=== PATIENT | male | born 1975 | race Two or more races ===

== ENCOUNTER 2018-02-23 22:43 | Emergency (ER) | payer SELFPAY ==
[2018-02-23] MEDS ORDERED: ACETAMINOPHEN 325 MG TABLET PO ONE (23:09)
[2018-02-23] MEDS ORDERED: HYDROMORPHONE HCL INJ/PF 2 MG/ML AMPULE IV ONE (23:13)
[2018-02-23] MEDS ORDERED: METOCLOPRAMIDE HCL INJ/PF 10 MG/2 ML SDV IV ONE (23:13)
--- NOTE | 2018-02-23 23:23 | ER Document Report ---
ED General - General Chief Complaint: Flank Pain Stated Complaint: NAUSEA AND FLANK PAIN Time Seen by Provider: 02/23/18 23:08 Mode of Arrival: Ambulatory Information source: Patient, Relative Notes: 42-year-old male with hypertension, COPD presents with complaint of left flank pain that started 5 days prior to arrival but worsened today just prior to arrival. Patient states the pain was initially intermittent, stabbing and not associated with nausea or vomiting. He states that he has had some upper respiratory congestion and thought the pain was caused by coughing. [facility]. Patient was home eating dinner when the pain became intense, constant and has been associated with continuous vomiting. Patient was unaware that he had a fever of 104. He denies any recent hospitalizations. TRAVEL OUTSIDE OF THE [place] IN LAST 30 DAYS: No - HPI Onset: Other Onset/Duration: Gradual, Persistent, Worse Quality of pain: Stabbing Severity: Severe Pain Level: 4 Associated symptoms: Nausea, Vomiting Exacerbated by: Movement Relieved by: Remaining still Similar symptoms previously: No Recently seen / treated by doctor: Yes - Related Data Allergies/Adverse Reactions: No Known Allergies Allergy (Unverified 02/23/18 22:51) Past Medical History - General Information source: Patient - Social History Smoking Status: Current Every Day Smoker Frequency of alcohol use: None Drug Abuse: None Lives with: Family Family History: Reviewed & Not Pertinent Patient has suicidal ideation: No Patient has homicidal ideation: No - Past Medical History Cardiac Medical History: Reports: Hx Hypertension Denies: Hx Coronary Artery Disease, Hx Heart Attack Pulmonary Medical History: Denies: Hx Asthma, Hx Bronchitis, Hx COPD, Hx Pneumonia Neurological Medical History: Denies: Hx Cerebrovascular Accident Musculoskeletal Medical History: Denies Hx Arthritis - Immunizations Hx Diphtheria, Pertussis, Tetanus Vaccination: Yes Review of Systems - Review of Systems EENT: No symptoms reported Cardiovascular: denies: Chest pain, Palpitations, Dizziness Respiratory: denies: Cough, Short of breath Gastrointestinal: Nausea, Vomiting Genitourinary: Flank pain, Retention. denies: Dysuria, Hematuria Male Genitourinary: No symptoms reported Musculoskeletal: No symptoms reported Skin: denies: Rash Hematologic/Lymphatic: denies: Easy bruising Neurological/Psychological: denies: Loss of power, Seizure, Headaches -: Yes All other systems reviewed and negative Physical Exam - Vital signs Vitals: Temp Pulse Resp BP Pulse Ox 104.5 F H 65 20 187/107 H 96 02/23/18 22:57 02/23/18 22:57 02/23/18 22:57 02/23/18 22:57 02/23/18 22:57 - Notes Notes: PHYSICAL EXAMINATION: GENERAL: Actively vomiting, ill-appearing, moderate distress. HEAD: Atraumatic, normocephalic. EYES: Pupils equal round and reactive to light, extraocular movements intact, sclera anicteric, conjunctiva are normal. ENT: Nares patent, oropharynx clear without exudates. Moist mucous membranes. NECK: Normal range of motion, supple without lymphadenopathy LUNGS: Breath sounds clear to auscultation bilaterally and equal. No wheezes rales or rhonchi. HEART: Regular rate and rhythm without murmurs ABDOMEN: Soft, nontender, nondistended abdomen. No guarding, no rebound. No masses appreciated. Musculoskeletal: Normal range of motion, no pitting or edema. No cyanosis. Left CVA tenderness NEUROLOGICAL: Cranial nerves grossly intact. Normal speech, normal gait. Normal sensory, motor exams PSYCH: Normal mood, normal affect. SKIN: Warm, Dry, normal turgor, no rashes or lesions noted. Course - Re-evaluation Re-evalutation: Laboratory 02/23/18 02/23/18 02/23/18 23:21 23:21 23:21 WBC 10.8 H RBC 5.29 Hgb 16.2 Hct 48.3 MCV 91 MCH 30.5 MCHC 33.5 RDW 13.5 Plt Count 240 Seg Neutrophils % 85.9 H Lymphocytes % 7.4 L Monocytes % 5.8 Eosinophils % 0.5 Basophils % 0.4 Absolute Neutrophils 9.2 H Absolute Lymphocytes 0.8 Absolute Monocytes 0.6 Absolute Eosinophils 0.1 Absolute Basophils 0.0 Sodium Potassium Chloride Carbon Dioxide Anion Gap BUN Creatinine Est GFR ( Amer) Est GFR (Non-Af Amer) Glucose Calcium Creatine Kinase 195 H CK-MB (CK-2) 1.79 Troponin I < 0.012 NT-Pro-B Natriuret Pep 91 Lipase 40.1 Urine Color Urine Appearance Urine pH Ur Specific [place] Urine Protein Urine Glucose (UA) Urine Ketones Urine Blood Urine Nitrite Urine Bilirubin Urine Urobilinogen Ur Leukocyte Esterase Urine WBC (Auto) Urine RBC (Auto) Urine Mucus (Auto) Urine Ascorbic Acid 07/11/18 07/12/18 23:21 01:28 WBC RBC Hgb Hct MCV MCH MCHC RDW Plt Count Seg Neutrophils % Lymphocytes % Monocytes % Eosinophils % Basophils % Absolute Neutrophils Absolute Lymphocytes Absolute Monocytes Absolute Eosinophils Absolute Basophils Sodium 146.7 H Potassium 4.1 Chloride 105 Carbon Dioxide 27 Anion Gap 15 BUN 22 H Creatinine 1.53 H Est GFR ( Amer) > 60 Est GFR (Non-Af Amer) 50 L Glucose 159 H Calcium 9.4 Creatine Kinase CK-MB (CK-2) Troponin I NT-Pro-B Natriuret Pep Lipase Urine Color YELLOW Urine Appearance CLEAR Urine pH 6.0 Ur Specific [place] 1.016 Urine Protein NEGATIVE Urine Glucose (UA) 50 H Urine Ketones 20 H Urine Blood SMALL H Urine Nitrite NEGATIVE Urine Bilirubin NEGATIVE Urine Urobilinogen NEGATIVE Ur Leukocyte Esterase NEGATIVE Urine WBC (Auto) 1 Urine RBC (Auto) 2 Urine Mucus (Auto) RARE Urine Ascorbic Acid NEGATIVE Abdomen/Pelvis CT 02/23/18 23:19 IMPRESSION: 1. There is a 0.3 cm obstructing calculus in the proximal left ureter producing mild left hydronephrosis. 2. Nonobstructing left nephrolithiasis. This exam was performed according to our departmental dose-optimization program, which includes automated exposure control, adjustment of the mA and/or kV according to patient size and/or use of iterative reconstruction technique. 42-year-old male with hypertension, COPD presents with complaint of left flank pain that started 5 days prior to arrival but worsened today just prior to arrival. Patient states the pain was initially intermittent, stabbing and not associated with nausea or vomiting. He states that he has had some upper respiratory congestion and thought the pain was caused by coughing. [facility] and [facility]. Patient was home eating dinner when the pain became intense, constant and has been associated with continuous vomiting. Patient was unaware that he had a fever of 104. He denies any recent hospitalizations. Upon arrival patient is in moderate distress , diaphoretic, actively vomiting and unable to find a position of comfort. Vitals signs reviewed upon arrival, patient is febrile tachycardic. Patient did recently IV fluids, Toradol, Dilaudid, Zofran, Reglan during his ED course. CBC shows mild leukocytosis, no anemia. CMP does show mild renal insufficiency which is likely due to the patient vomiting all day. On reevaluation patient is resting more comfortably, vomiting has stopped. CT and laboratory findings were discussed with the patient. He does have follow-up at the NH and next 2 days. Patient was administered Zofran and [place] through the department for home-going medications. Son is at the bedside will accompany the patient home. 02/23/18 23:33 Bedside ultrasound was performed to assess for AAA. Aorta at its maximal diameter is 3.09. Bedside ultrasound of the kidneys were performed to assess for hydronephrosis which was absent. Images attached to chart. 02/24/18 02:15 02/24/18 02:27 Repeat temp is within normal limits. Patient does report that just prior to arriving to the emergency room he was soaking in hot tub which is likely the reason for his elevated temp upon arrival. There is an improvement of his elevated blood pressure which I think is highly likely related to his pain and his inabilty to take his BP meds today. Patient provided the opportunity to ask questions, and express concerns. Discharge instructions discussed. Patient is agreeable with discharge home. Return indications explained and discussed with the patient who displays understanding. Patient encouraged to return to the emergency department immediately with any concerns. 02/25/18 07:18 02/25/18 07:19 - Vital Signs Vital signs: Temp Pulse Resp BP Pulse Ox 98.5 F 65 14 165/103 H 94 02/24/18 02:24 02/23/18 22:57 02/24/18 02:01 02/24/18 02:01 02/24/18 02:01 - Laboratory Result Diagrams: 02/23/18 23:21 02/23/18 23:21 Laboratory results interpreted by me: 02/23/18 02/23/18 02/23/18 23:21 23:21 23:21 WBC 10.8 H Seg Neutrophils % 85.9 H Lymphocytes % 7.4 L Absolute Neutrophils 9.2 H Sodium 146.7 H BUN 22 H Creatinine 1.53 H Est GFR (Non-Af Amer) 50 L Glucose 159 H Creatine Kinase 195 H Urine Glucose (UA) Urine Ketones Urine Blood 02/24/18 01:28 WBC Seg Neutrophils % Lymphocytes % Absolute Neutrophils Sodium BUN Creatinine Est GFR (Non-Af Amer) Glucose Creatine Kinase Urine Glucose (UA) 50 H Urine Ketones 20 H Urine Blood SMALL H - Diagnostic Test Radiology reviewed: Image reviewed, Reports reviewed - EKG Interpretation by Me EKG shows normal: Sinus rhythm Rate: Normal Rhythm: NSR Discharge - Discharge Clinical Impression: FREDERIC (acute kidney injury), Hyperglycemia Urolithiasis Qualifiers: Urinary calculus location: upper urinary tract Qualified Code(s): N20.9 - Urinary calculus, unspecified Hematuria Qualifiers: Hematuria type: unspecified type Qualified Code(s): R31.9 - Hematuria, unspecified Hypertension Qualifiers: Hypertension type: unspecified Qualified Code(s): I10 - Essential (primary) hypertension Nausea & vomiting Qualifiers: Vomiting type: unspecified Vomiting Intractability: non-intractable Qualified Code(s): R11.2 - Nausea with vomiting, unspecified Condition: Good Disposition: HOME, SELF-CARE Instructions: Fever ([facility]), High Blood Pressure ([facility]), Hyperglycemia ([facility]), Kidney Injury ([facility]), Kidney Stone ([facility]), Vomiting ([facility]) Additional Instructions: Please contact the NH tomorrow for urology follow-up. Please return to the emergency department if you are unable to keep down your meds. Prescriptions: Ibuprofen [Motrin 600 Mg Tablet] 600 mg PO TID #15 tablet Ondansetron [Zofran Odt 4 mg Tablet] 1 - 2 tab PO Q4H PRN #15 tab.rapdis PRN Reason: For Nausea/Vomiting Oxycodone HCl/Acetaminophen [Percocet 5-325 mg Tablet] 1 - 2 tab PO Q4H PRN #15 tablet PRN Reason: Tamsulosin HCl [Flomax 0.4 mg Cap.sr] 0.4 mg PO DAILY #7 cap.sr.24h Forms: Elevated Blood Pressure Referrals: [facility],NO [Primary Care Provider] - Follow up as needed
[2018-02-24] MEDS ORDERED: ONDANSETRON 4 MG TAB.RAPDIS PO ONE (00:08)
[2018-02-24] MEDS ORDERED: HYDROMORPHONE HCL INJ/PF 2 MG/ML AMPULE IV ONE ×2 (00:08→02:14)
[2018-02-24 00:09] LABS: ABSOLUTE EOSINOPHILS # (AUTO) 0.1 10^3/uL (0.0-0.6); ABSOLUTE LYMPHOCYTES (AUTO) 0.8 10^3/uL (0.5-4.7); ABSOLUTE MONOCYTES (AUTO) 0.6 10^3/uL (0.1-1.4); ABSOLUTE NEUT (AUTO) 9.2 10^3/uL (1.7-8.2); BASOPHILS % (AUTO) 0.4 % (0-2); EOSINOPHILS % (AUTO) 0.5 % (0-6); HEMATOCRIT 48.3 % (37.9-51.0); HEMOGLOBIN 16.2 g/dL (13.5-17.0); LYMPHOCYTES % (AUTO) 7.4 % (13-45); MEAN CORPUSCULAR HEMOGLOBIN 30.5 pg (27.0-33.4); MEAN CORPUSCULAR HGB CONC 33.5 g/dL (32.0-36.0); MEAN CORPUSCULAR VOLUME 91 fl (80-97); MONOCYTES % (AUTO) 5.8 % (3-13); PLATELET COUNT 240 10^3/uL (150-450); RED BLOOD COUNT 5.29 10^6/uL (4.35-5.55); RED CELL DISTRIBUTION WIDTH 13.5 % (11.5-14.0); SEGMENTED NEUTROPHILS % (AUTO) 85.9 % (42-78); TOTAL CELLS COUNTED % (AUTO) 100 %; WHITE BLOOD COUNT 10.8 10^3/uL (4.0-10.5)
[2018-02-24] MEDS ORDERED: NORMAL SALINE 1000 ML 1,000 ML IV ONE (00:09)
[2018-02-24 00:27] LABS: LIPASE 40.1 U/L (23-300)
[2018-02-24 00:43] LABS: CREATINE KINASE MB 1.79 ng/mL (<4.55); NT PRO BNP 91 pg/mL (<125); TROPONIN I < 0.012 ng/mL
--- NOTE | 2018-02-24 00:55 | RADIOLOGY REPORT (SQ) ---
EXAM DESCRIPTION: CT ABDOMEN PELVIS WITHOUT IV CONTRAST COMPLETED DATE/TME: 02/23/2018 23:19 CLINICAL HISTORY: left flank pain COMPARISON: None Available. TECHNIQUE: CT of the abdomen and pelvis without IV contrast. Evaluation of the solid organs and vasculature is suboptimal due to lack of IV contrast. DLP: 1109.31 mGy-cm FINDINGS: Lung Bases: Bilateral calcified granulomas. Otherwise lung bases are clear. Bones: No destructive bone lesions identified. Abdomen: Liver: The liver has normal size and density. Scattered subcentimeter hypodensities in the right hepatic lobe are incompletely characterized on this study and may represent hemangiomas or small cysts. Gallbladder: No calcified gallstones. Spleen, Pancreas, and Adrenal Glands: The spleen, pancreas, and adrenal glands are unremarkable. Kidneys: No right-sided hydronephrosis. Punctate nonobstructing left renal calculi. Mild left perinephric fat stranding. There is a 0.3 cm obstructing calculus in the proximal left ureter producing mild left hydronephrosis. Vasculature: The aorta and IVC have normal caliber and position. Stomach: The stomach and duodenum have normal course. Other: No free intraperitoneal air. No free fluid or lymphadenopathy. Pelvis: Bladder: Urinary bladder is unremarkable. Bowel: No dilated loops of large or small bowel. Appendix: Normal appendix. Pelvis: Prostate is not enlarged. IMPRESSION: 1. There is a 0.3 cm obstructing calculus in the proximal left ureter producing mild left hydronephrosis. 2. Nonobstructing left nephrolithiasis. This exam was performed according to our departmental dose-optimization program, which includes automated exposure control, adjustment of the mA and/or kV according to patient size and/or use of iterative reconstruction technique.
[2018-02-24] MEDS ORDERED: TAMSULOSIN HCL 0.4 MG CAP.SR.24H PO ONE (01:13)
[2018-02-24] MEDS ORDERED: KETOROLAC TROMETHAMINE INJ/PF 30 MG/1 ML SDV IV ONE (01:13)
[2018-02-24 01:35] LABS: ANION GAP 15 (5-19); BLOOD UREA NITROGEN 22 mg/dL (7-20); CALCIUM 9.4 mg/dL (8.4-10.2); CARBON DIOXIDE 27 mmol/L (22-30); CHLORIDE 105 mmol/L (98-107); GLUCOSE 159 mg/dL (75-110); POTASSIUM 4.1 mmol/L (3.6-5.0); SODIUM 146.7 mmol/L (137-145)
[2018-02-24 01:39] LABS: APPEARANCE,URINE CLEAR; BILIRUBIN,URINE NEGATIVE (NEGATIVE); COLOR,URINE YELLOW; GLUCOSE, URINE 50 mg/dL (NEGATIVE); KETONES,URINE 20 mg/dL (NEGATIVE); LEUKOCYTE ESTERASE,URINE NEGATIVE (NEGATIVE); NITRITE,URINE NEGATIVE (NEGATIVE); PROTEIN,URINE NEGATIVE (NEGATIVE); URINE SPECIFIC GRAVITY 1.016; UROBILINOGEN,URINE NEGATIVE mg/dL (<2.0)
[2018-02-24 02:25] VITALS: BP 165/103
[2018-02-24] MEDS ORDERED: ONDANSETRON ODT 4 MG TAB (6 TAB/ER DISP) PO PRN (02:28)
[2018-02-24] MEDS ORDERED: HYDROCODONE/ACETAMINOPHEN 5-325 MG (6 TAB/ER DISP) PO PRN (02:28)
--- NOTE | 2018-02-24 20:31 | EKG REPORT ---
SEVERITY:- ABNORMAL ECG - SINUS RHYTHM PROBABLE INFERIOR INFARCT, AGE INDETERMINATE : Confirmed by: Susan Peter MD 24-Feb-2018 20:30:26
== END 2018-02-24 02:35 | disposition home or self-care (01) ==
LOC: ER 22:43
DX: N17.9 Acute kidney failure, unspecified (principal); N20.9 Urinary calculus, unspecified; R31.9 Hematuria, unspecified; R73.9 Hyperglycemia, unspecified; R10.9 Unspecified abdominal pain; R11.2 Nausea with vomiting, unspecified; F17.200 Nicotine dependence, unspecified, uncomplicated; J44.9 Chronic obstructive pulmonary disease, unspecified; I10 Essential (primary) hypertension
CPT/HCPCS: 93005; 96376; 99284; 96361; 96374; 96375; 36415; 87040; 82553; 82550; 83690; 85025; 80048; 81001; 84484; 83880; 74176; 93010; S0119; J1885; J2765; J1170 ×2; J7030

== ENCOUNTER 2018-10-07 17:09 | Inpatient (IN) | payer OTHER ==
[2018-10-07 17:37] LABS: ABSOLUTE BASOPHILS # (AUTO) 0.1 10^3/uL (0.0-0.2); ABSOLUTE EOSINOPHILS # (AUTO) 0.1 10^3/uL (0.0-0.6); ABSOLUTE LYMPHOCYTES (AUTO) 2.6 10^3/uL (0.5-4.7); ABSOLUTE MONOCYTES (AUTO) 0.8 10^3/uL (0.1-1.4); ABSOLUTE NEUT (AUTO) 4.5 10^3/uL (1.7-8.2); BASOPHILS % (AUTO) 0.8 % (0-2); HEMATOCRIT 48.3 % (37.9-51.0); HEMOGLOBIN 16.2 g/dL (13.5-17.0); LYMPHOCYTES % (AUTO) 32.4 % (13-45); MEAN CORPUSCULAR HEMOGLOBIN 31.3 pg (27.0-33.4); MEAN CORPUSCULAR HGB CONC 33.6 g/dL (32.0-36.0); MEAN CORPUSCULAR VOLUME 93 fl (80-97); MONOCYTES % (AUTO) 10.2 % (3-13); PLATELET COUNT 377 10^3/uL (150-450); RED BLOOD COUNT 5.19 10^6/uL (4.35-5.55); RED CELL DISTRIBUTION WIDTH 12.8 % (11.5-14.0); SEGMENTED NEUTROPHILS % (AUTO) 55.6 % (42-78); TOTAL CELLS COUNTED % (AUTO) 100 %; WHITE BLOOD COUNT 8.1 10^3/uL (4.0-10.5)
[2018-10-07 18:03] LABS: ALANINE AMINOTRANSFERASE 36 U/L (21-72); ALBUMIN 5.3 g/dL (3.5-5.0); ALKALINE PHOSPHATASE 62 U/L (38-126); ANION GAP 17 (5-19); ASPARTATE AMINO TRANSFERASE 47 U/L (17-59); BILIRUBIN,DIRECT 0.4 mg/dL (0.0-0.4); BILIRUBIN,TOTAL 0.8 mg/dL (0.2-1.3); BLOOD UREA NITROGEN 15 mg/dL (7-20); CALCIUM 9.9 mg/dL (8.4-10.2); CARBON DIOXIDE 24 mmol/L (22-30); CHLORIDE 103 mmol/L (98-107); CREATINE KINASE 575 U/L (55-170); GLUCOSE 108 mg/dL (75-110); POTASSIUM 3.8 mmol/L (3.6-5.0); SODIUM 143.7 mmol/L (137-145); TOTAL PROTEIN 7.8 g/dL (6.3-8.2)
[2018-10-07] MEDS ORDERED: LORAZEPAM INJ 2 MG/1 ML VIAL IV ONE (18:12)
[2018-10-07] MEDS ORDERED: CLONIDINE HCL 0.1 MG TABLET PO ONE (18:12)
--- NOTE | 2018-10-07 18:12 | RADIOLOGY REPORT (SQ) ---
EXAM DESCRIPTION: CHEST SINGLE VIEW COMPLETED DATE/TIME: 10/07/2018 5:53 pm REASON FOR STUDY: cp COMPARISON: None. EXAM PARAMETERS: NUMBER OF VIEWS: One view. TECHNIQUE: Single frontal radiographic view of the chest acquired. RADIATION DOSE: NA LIMITATIONS: None. FINDINGS: LUNGS AND PLEURA: There are some calcified granulomas. No infiltrate or effusion. No wor risome mass. MEDIASTINUM AND HILAR STRUCTURES: No masses. Contour normal. HEART AND VASCULAR STRUCTURES: Heart normal in size. Normal vasculature. BONES: No acute findings. HARDWARE: None in the chest. OTHER: No other significant finding. IMPRESSION: Prior granulomatous disease. No acute cardiopulmonary findings. TECHNICAL DOCUMENTATION: JOB ID: [id number] [employer]- All Rights Reserved Reading location - IP/workstation name: [email or web address]
[2018-10-07] MEDS ORDERED: NORMAL SALINE 1000 ML 1,000 ML IV ONE (18:13)
[2018-10-07 18:15] LABS: CREATINE KINASE MB 4.72 ng/mL (<4.55)
[2018-10-07 18:16] LABS: TROPONIN I < 0.012 ng/mL
--- NOTE | 2018-10-07 18:21 | ER Document Report ---
ED General - General Chief Complaint: Syncope Stated Complaint: CHEST PAIN Time Seen by Provider: 10/07/18 18:00 Primary Care Provider: [facility] [Primary Care Provider] - Follow up as needed Mode of Arrival: Medic Information source: Patient Notes: 43-year-old male presents emergency department with complaints of an anxiety attack. Patient states that he has been having increasing anxiety for the last month. He states that he is followed up with the [facility] on Wednesday and again today. Patient states that when he was at the [facility] today they gave him a prescription for Prozac. As he was getting ready to leave, his chest pain occurred and he was feeling lightheaded, flushed, nauseated and he passed out. He was unresponsive for 5-10 seconds per the . EMS was called and patient was brought to the emergency department. Patient denies any new chest pain. He states that he has been having a tight sensation in the center of his chest intermittently for the last month. His current chest pain is located in the center of the chest. Pressure sensation. Radiation to the L shoulder. He denies any alleviating or exacerbating factors. Patient states that he stopped all of his medications a month and a half ago. He states that he supposed to be on blood pressure medication as he has a history of hypertension. Patient was hypertensive prior to arrival. Patient states that he supposed to be taking hydrochlorothiazide. Patient denies a history of coronary artery disease, diabetes, hyperlipidemia, family history of coronary artery disease. TRAVEL OUTSIDE OF THE [place] IN LAST 30 DAYS: No - HPI Onset: Other - 1 month Quality of pain: Pressure Severity: Mild Associated symptoms: Chest pain Exacerbated by: Denies Relieved by: Denies Similar symptoms previously: Yes Recently seen / treated by doctor: Yes - Related Data Allergies/Adverse Reactions: No Known Allergies Allergy (Unverified 02/23/18 22:51) Past Medical History - General Information source: Patient - Social History Smoking Status: Never Smoker Family History: Reviewed & Not Pertinent Patient has suicidal ideation: No Patient has homicidal ideation: No - Past Medical History Cardiac Medical History: Reports: Hx Hypertension Denies: Hx Coronary Artery Disease, Hx Heart Attack Pulmonary Medical History: Denies: Hx Asthma, Hx Bronchitis, Hx COPD, Hx Pneumonia Neurological Medical History: Denies: Hx Cerebrovascular Accident Renal/ Medical History: Denies: Hx Peritoneal Dialysis Musculoskeletal Medical History: Denies Hx Arthritis - Immunizations Hx Diphtheria, Pertussis, Tetanus Vaccination: Yes Review of Systems - Review of Systems Constitutional: No symptoms reported EENT: No symptoms reported Cardiovascular: Chest pain Respiratory: No symptoms reported Gastrointestinal: No symptoms reported Genitourinary: No symptoms reported Musculoskeletal: No symptoms reported Skin: No symptoms reported Hematologic/Lymphatic: No symptoms reported Neurological/Psychological: No symptoms reported -: Yes All other systems reviewed and negative Physical Exam - Vital signs Vitals: Pulse Ox 99 10/07/18 17:18 - Notes Notes: PHYSICAL EXAMINATION: GENERAL: Well-appearing, well-nourished and in no acute distress. HEAD: Atraumatic, normocephalic. EYES: Pupils equal round and reactive to light, extraocular movements intact, sclera anicteric, conjunctiva are normal. ENT: Nares patent, oropharynx clear without exudates. Moist mucous membranes. NECK: Normal range of motion, supple without lymphadenopathy LUNGS: Breath sounds clear to auscultation bilaterally and equal. No wheezes rales or rhonchi. HEART: Regular rate and rhythm without murmurs ABDOMEN: Soft, nontender, nondistended abdomen. No guarding, no rebound. No masses appreciated. Musculoskeletal: Normal range of motion, no pitting or edema. No cyanosis. NEUROLOGICAL: Cranial nerves grossly intact. Normal speech, normal gait. Normal sensory, motor exams PSYCH: Normal mood, normal affect. SKIN: Warm, Dry, normal turgor, no rashes or lesions noted. Course - Re-evaluation Re-evalutation: 10/07/18 18:21 EKG: Ventricular rate 89, MN interval 184, QRS duration 104, QTc 473, sinus rhythm. No ischemic changes. 10/07/18 20:11 Labs and imaging obtained. CK and CKMB are slightly elevated. Patient given ativan for his anxiety and clonidine for his hypertension. On re-evaluation, patient's pain/anxiety has resolved. With the patient's history of Chest pressure and elevated CKMB, I contacted the hospitalist for cardiac rule out. Dr. Sharp accepts patient. - Vital Signs Vital signs: Temp Pulse Resp BP Pulse Ox 97.9 F 62 15 183/100 H 97 10/07/18 17:25 10/07/18 19:15 10/07/18 20:01 10/07/18 20:00 10/07/18 20:01 - Laboratory Result Diagrams: 10/07/18 17:18 10/07/18 17:18 Laboratory results interpreted by me: 10/07/18 10/07/18 17:18 17:18 Creatine Kinase 575 H CK-MB (CK-2) 4.72 H Albumin 5.3 H Discharge - Discharge Clinical Impression: Chest pain Qualifiers: Chest pain type: unspecified Qualified Code(s): R07.9 - Chest pain, unspecified Syncope Qualifiers: Syncope type: unspecified Qualified Code(s): R55 - Syncope and collapse Condition: Stable Disposition: ADMITTED OBSERVATION Admitting Provider: Hospitalist Unit Admitted: Telemetry [facility]errals: [facility] [Primary [facility] Provider] - Follow up as needed
--- NOTE | 2018-10-07 19:27 | EKG REPORT ---
SEVERITY:- ABNORMAL ECG - SINUS OR ECTOPIC ATRIAL RHYTHM PROBABLE INFERIOR INFARCT, AGE INDETERMINATE : Confirmed by: Raymond Mcginnis MD 07-Oct-2018 19:26:53
[2018-10-07] MEDS ORDERED: MAG HYDROX/AL HYDROX/SIMETH SUSP 30 ML UDCUP PO PRN (21:34)
[2018-10-07] MEDS ORDERED: ONDANSETRON HCL INJ/PF 4 MG/2 ML SDV IV PRN (21:34)
[2018-10-07] MEDS ORDERED: ONDANSETRON 4 MG TAB.RAPDIS PO PRN (21:34)
[2018-10-07] MEDS ORDERED: MAGNESIUM HYDROXIDE SUSP 30 ML UDCUP PO PRN (21:34)
[2018-10-07] MEDS ORDERED: NALBUPHINE HCL INJ 10 MG/1 ML AMPULE IV PRN (21:38)
[2018-10-07] MEDS ORDERED: NITROGLYCERIN 0.4 MG/TAB 25 TAB/BOTTLE SL PRN (21:38)
[2018-10-07] MEDS ORDERED: CLONAZEPAM 1 MG TABLET PO PRN (21:42)
[2018-10-07] MEDS ORDERED: LOSARTAN POTASSIUM 50 MG TABLET PO ONE (21:46)
[2018-10-07] MEDS: HEPARIN SOD (PORCINE) 5,000 UNIT/ML 1 ML SYRINGE SUBCUT SCH (22:07)
[2018-10-07] MEDS: FAMOTIDINE 20 MG TABLET PO SCH (22:07)
[2018-10-07] MEDS: HYDRALAZINE HCL INJ/PF 20 MG/1 ML SDV IV PRN (23:30)
--- NOTE | 2018-10-08 00:37 | PDOC H&P ---
History of Present Illness Admission Date/PCP: [facility] Patient complains of: Chest pain History of Present Illness: FRANKIE SLATER II is a 43 year old male who presented to the emergency room via EMS from the [facility] with a complaint of chest pain. He admits that he has been having chest pain for the last 3 weeks which he describes as a nearly continuously present while awake, waxing and waning, moderate to severe tightness/pressure discomfort over his bilateral anterior chest wall with occasional radiation to the bilateral shoulders (experienced as a burning sensation) as well as when the pain is most severe it is radiated to t he upper back and base of the neck. He further admits that his chest pain is accompanied by numbness and tingling in his lips, a sensation of tunnel vision, lightheadedness and hyperventilation/acute episodic dyspnea. On the episode which occurred at the [facility] just prior to his coming to the emergency room he experienced a 10-second episode of syncope however he knew that he was about to pass out and informed the staff that that was how he was feeling just prior to his syncopal episode. He has no memory of the actual syncopal episode but clearly remembers everything from the point of waking from the episode and being informed that he was unconscious for about 10 seconds. He admits that he has had significant problems with anxiety for quite some time and has been seeking help at the [facility] with little or no success. Additionally he admits that he has known hypertension since his teenage years but he has discontinued the use of antihypertensive medications for more than 2 years. He denies prior similar episodes, but has identified stress as a definite aggravating factor for his chest pain and other symptoms and has also identified sitting calmly in meditating as a ameliorating factor for his chest pain and other symptoms. In the emergency room he was found to have a normal EKG and a negative troponin I. Because of his risk factors he was admitted to the hospital for further evaluation and treatment to include a cardiac stress test and initiation of appropriate therapy for his generalized anxiety disorder with panic attacks. Past Medical History Cardiac Medical History: Reports: Hypertension Denies: Coronary Artery Disease, DVT, Myocardial Infarction, Hyperlipidema, Pulmonary Embolism Pulmonary Medical History: Denies: Asthma, Bronchitis, Chronic Obstructive Pulmonary Disease (COPD), Pneumonia EENT Medical History: Reports: None Neurological Medical History: Reports: Other - Left-sided paresthesia episodes Denies: Migraine, Multiple Sclerosis, Seizures Endocrine Medical History: Reports: Obesity Denies: Diabetes Mellitus Type 1, Diabetes Mellitus Type 2, Hyperthyroidism, Hypothyroidism Renal/ Medical History: Denies: Chronic Kidney Disease, Nephrolithiasis Malignancy Medical History: Reports: None GI Medical History: Denies: Cirrhosis, Hepatitis Musculoskeltal Medical History: Denies: Arthritis, Fibromyalgia, Gout Skin Medical History: Denies: Eczema, Psoriasis Psychiatric Medical History: Reports: General Anxiety Disorder, 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 Denies: Alcohol Dependency, Substance Abuse, Tobacco Dependency Traumatic Medical History: Reports: None Hematology: Denies: Anemia Infectious Medical History: Reports: None Past Surgical History Past Surgical History: Reports: None Social History Information Source: Patient Smoking Status: Never Smoker Frequency of Alcohol Use: None Hx Recreational Drug Use: No Drugs: None Hx Prescription Drug Abuse: No - Advance Directive Resuscitation Status: Full Code Surrogate healthcare decision maker:: Spouse Family History Family History: CAD, DM, Hypertension, Malignancy Parental Family History Reviewed: Yes Children Family History Reviewed: No Sibling(s) Family History Reviewed.: Yes Medication/Allergy Home Medications: Bupropion HCl [Wellbutrin Sr 150 mg Tablet] 1 tab PO Q12 05/17/13 Carbamazepine [Tegretol XR 100 mg Ext Release Tablet] 100 mg PO BID 05/17/13 Diazepam [Valium 5 Mg Tablet] 5 mg PO Q6 PRN 05/17/13 Hydrochlorothiazide 1 PO DAILY 05/17/13 Metoprolol Succinate [Toprol XL 25 mg Tablet] 25 mg PO 05/17/13 Ibuprofen [Motrin 600 Mg Tablet] 600 mg PO TID #15 tablet 02/24/18 Ondansetron [Zofran Odt 4 mg Tablet] 1 - 2 tab PO Q4H PRN #15 tab.rapdis 08/02 Oxycodone HCl/Acetaminophen [Percocet 5-325 mg Tablet] 1 - 2 tab PO Q4H PRN #15 tablet 02/24/18 Tamsulosin HCl [Flomax 0.4 mg Cap.sr] 0.4 mg PO DAILY #7 cap.sr.24h 02/24/18 Allergies/Adverse Reactions: No Known Allergies Allergy (Unverified 02/23/18 22:51) Review of Systems Constitutional: ABSENT: chills, fever(s) Eyes: ABSENT: visual disturbances, other - Eye pain Ears: ABSENT: hearing changes, other - Ear pain Nose, Mouth, and Throat: ABSENT: mouth pain, sore throat Cardiovascular: PRESENT: as per HPI, chest pain. ABSENT: dyspnea on exertion, edema, orthropnea, palpitations Respiratory: PRESENT: as per HPI, dyspnea. ABSENT: cough Gastrointestinal: ABSENT: abdominal pain, constipation, diarrhea, nausea, vomiting Genitourinary: ABSENT: dysuria, hematuria Musculoskeletal: ABSENT: deformity, joint swelling Integumentary: ABSENT: pruritus, rash Neurological: PRESENT: as per HPI, paresthesias, syncope. ABSENT: confusion, convulsions, focal weakness, memory loss Psychiatric: PRESENT: anxiety, depression Endocrine: ABSENT: cold intolerance, heat intolerance Hematologic/Lymphatic: ABSENT: easy bleeding, easy bruising Physical Exam Vital Signs: Temp Pulse Resp BP Pulse Ox 97.9 F 62 19 146/90 H 94 10/07/18 17:25 10/07/18 19:15 10/07/18 19:31 10/07/18 19:31 10/07/18 19:31 Intake & Output 10/05/18 10/06/18 10/07/18 23:59 23:59 23:59 Intake Total 1000 Balance 1000 Weight 117.934 kg General appearance: PRESENT: no acute distress, cooperative, obese Head exam: PRESENT: atraumatic, normocephalic Eye exam: PRESENT: conjunctiva pink, EOMI. ABSENT: scleral icterus Ear exam: PRESENT: normal external ear exam. ABSENT: bleeding, drainage Mouth exam: PRESENT: dry mucosa, neck supple Neck exam: ABSENT: JVD, thyromegaly, tracheal deviation Respiratory exam: PRESENT: clear to auscultation max, symmetrical, unlabored Cardiovascular exam: PRESENT: RRR. ABSENT: clicks, gallop, rubs Pulses: PRESENT: normal radial pulses, normal dorsalis pedis pul Vascular exam: PRESENT: normal capillary refill. ABSENT: pallor GI/Abdominal exam: PRESENT: normal bowel sounds, soft Rectal exam: PRESENT: deferred Extremities exam: ABSENT: joint swelling, pedal edema, tenderness Musculoskeletal exam: PRESENT: full ROM, normal inspection. ABSENT: tenderness Neurological exam: PRESENT: alert, awake, oriented to person, oriented to place, oriented to time, oriented to situation, CN II-XII grossly intact. ABSENT: motor sensory deficit Psychiatric exam: PRESENT: appropriate affect, normal mood Skin exam: PRESENT: dry, intact, warm. ABSENT: jaundice, rash, urticaria Results Laboratory Results: 10/07/18 17:18 10/07/18 17:18 10/07/18 10/07/18 17:18 17:18 WBC 8.1 RBC 5.19 Hgb 16.2 Hct 48.3 MCV 93 MCH 31.3 MCHC 33.6 RDW 12.8 Plt Count 377 Seg Neutrophils % 55.6 Lymphocytes % 32.4 Monocytes % 10.2 Eosinophils % 1.0 Basophils % 0.8 Absolute Neutrophils 4.5 Absolute Lymphocytes 2.6 Absolute Monocytes 0.8 Absolute Eosinophils 0.1 Absolute Basophils 0.1 Sodium 143.7 Potassium 3.8 Chloride 103 Carbon Dioxide 24 Anion Gap 17 BUN 15 Creatinine 0.92 Est GFR ( Amer) > 60 Est GFR (Non-Af Amer) > 60 Glucose 108 Calcium 9.9 Total Bilirubin 0.8 AST 47 ALT 36 Alkaline Phosphatase 62 Total Protein 7.8 Albumin 5.3 H 10/07/18 10/07/18 17:18 17:18 Creatine Kinase 575 H CK-MB (CK-2) 4.72 H Troponin I < 0.012 Impressions: Chest X-Ray 10/07/18 17:22 IMPRESSION: Prior granulomatous disease. No acute cardiopulmonary findings. Assessment & Plan - Diagnosis (1) Chest pain Qualifiers: Chest pain type: unspecified Qualified Code(s): R07.9 - Chest pain, unspecified Is this a current diagnosis for this admission?: Yes Plan: A Cardiolite stress test is planned for the morning to evaluate the patient's chest pain. Serial cardiac enzymes and EKGs will also be obtained. Further evaluation treatment will be based upon the results of these tests. Patient's chest pain will also be treated with Nubain 10 mg IV every 3 hours as needed for chest pain. (2) Essential hypertension, malignant Is this a current diagnosis for this admission?: Yes Plan: Patient will be restarted on antihypertensive medication with losartan 100 mg p.o. daily with further treatment based upon his response to initial therapy. (3) Generalized anxiety disorder with panic attacks Is this a current diagnosis for this admission?: Yes Plan: Patient's generalized anxiety disorder with panic attacks will be initially managed with clonazepam 0.5 mg p.o. twice daily. The patient will be treated for any severe acute anxiety or agitation with Valium 10 mg IV every 2 hours as needed. (4) Syncope Qualifiers: Syncope type: psychogenic syncope Qualified Code(s): F48.8 - Other specified nonpsychotic mental disorders Is this a current diagnosis for this admission?: Yes Plan: Patient's syncope would seem to have been related to his hyperventilation however his cardiac stress test and emergency room evaluation already performed should reliably rule out the vast majority of other causes of his syncopal episode. - Time Time Spent: 50 to 70 Minutes Critical Time spent with patient: Less than 15 minutes Medications reviewed and adjusted accordingly: Yes - Has prescription for Prozac Anticipated discharge: Home - Inpatient Certification Based on my medical assessment, after consideration of the patient's comorbidities, presenting symptoms, or acuity I expect that the services needed warrant INPATIENT care.: Yes I certify that my determination is in accordance with my understanding of Medicare's requirements for reasonable and necessary INPATIENT services [42 CFR 412.3e].: Yes Medical Necessity: Failure to Improve With Outpatient Therapy, Need Close Monitoring Due to Risk of Patient Decompensation, Need For Continuous Telemetry Monitoring, Need for Pain Control, Risk of Complication if Not Cared For in Hospital
[2018-10-08] MEDS ORDERED: DIAZEPAM INJ 10 MG/2 ML DISP.SYRIN IV PRN ×2 (00:54→06:01)
[2018-10-08 04:08] LABS: HEMATOCRIT 44.4 % (37.9-51.0); HEMOGLOBIN 15.2 g/dL (13.5-17.0); MEAN CORPUSCULAR HEMOGLOBIN 31.2 pg (27.0-33.4); MEAN CORPUSCULAR HGB CONC 34.2 g/dL (32.0-36.0); MEAN CORPUSCULAR VOLUME 91 fl (80-97); PLATELET COUNT 246 10^3/uL (150-450); RED BLOOD COUNT 4.86 10^6/uL (4.35-5.55); WHITE BLOOD COUNT 4.7 10^3/uL (4.0-10.5)
[2018-10-08 04:22] LABS: ANION GAP 7 (5-19); BLOOD UREA NITROGEN 12 mg/dL (7-20); CALCIUM 9.4 mg/dL (8.4-10.2); CARBON DIOXIDE 27 mmol/L (22-30); CHLORIDE 109 mmol/L (98-107); CHOLESTEROL 149.81 mg/dL (0-200); GLUCOSE 98 mg/dL (75-110); POTASSIUM 3.5 mmol/L (3.6-5.0); SODIUM 143.4 mmol/L (137-145); TRIGLYCERIDES 127 mg/dL (<150)
[2018-10-08 04:33] LABS: DIRECT LDL 106 mg/dL (<100)
[2018-10-08 04:35] LABS: CREATINE KINASE MB 2.35 ng/mL (<4.55)
[2018-10-08 04:39] LABS: FREE T3 4.07 pg/mL (2.77-5.27); FREE T4 (FREE THYROXINE) 1.1 ng/dL (0.78-2.19); TROPONIN I < 0.012 ng/mL
[2018-10-08 04:52] LABS: THYROID STIMULATING HORMONE 0.91 uIU/mL (0.47-4.68)
[2018-10-08] MEDS: HEPARIN SOD (PORCINE) 5,000 UNIT/ML 1 ML SYRINGE SUBCUT SCH ×3 (05:36→21:39)
[2018-10-08] MEDS: CLONAZEPAM 1 MG TABLET PO PRN ×2 (06:08→14:03)
[2018-10-08] MEDS: HYDRALAZINE HCL INJ/PF 20 MG/1 ML SDV IV PRN ×2 (08:14→12:48)
[2018-10-08 11:01] LABS: CREATINE KINASE MB 1.98 ng/mL (<4.55); TROPONIN I < 0.012 ng/mL
[2018-10-08] MEDS: FAMOTIDINE 20 MG TABLET PO SCH ×2 (11:41→21:39)
[2018-10-08] MEDS: LOSARTAN POTASSIUM 50 MG TABLET PO SCH (11:41)
[2018-10-08] MEDS: ACETAMINOPHEN 325 MG TABLET PO PRN ×2 (11:41→19:59)
[2018-10-08] MEDS: DOCUSATE SODIUM 100 MG CAPSULE PO SCH ×2 (11:42→18:43)
--- NOTE | 2018-10-08 13:13 | EKG REPORT ---
SEVERITY:- ABNORMAL ECG - ECTOPIC ATRIAL RHYTHM LAD, BORDERLINE PROLONGED QT INTERVAL : Confirmed by: Raymond Mcginnis MD 08-Oct-2018 13:12:54
--- NOTE | 2018-10-08 13:33 | PDOC PROGRESS REPORT ---
Subjective Progress Note for:: 10/08/18 Subjective:: Admitted overnight for chest pain. Most likely due to worsening anxiety. Patient feels that symptoms feel like chest pressure which he can feel "in my muscles". Denies SOB, abdominal pain, NV. Does admit to lightheadness with movement. No loss of consciousness. Trying to relax and play instrument in bed. Stress test was cancelled this AM due to elevated BP. No other complaints at this point. Reason For Visit: CHEST PAIN Physical Exam Vital Signs: Temp Pulse Resp BP Pulse Ox 97.6 F 106 H 18 172/95 H 99 10/08/18 11:00 10/08/18 12:51 10/08/18 11:00 10/08/18 12:51 10/08/18 12:51 Intake & Output 10/07/18 10/08/18 10/09/18 06:59 06:59 06:59 Intake Total 1150 Output Total 775 Balance 375 Weight 116.7 kg General appearance: PRESENT: no acute distress, cooperative, well-developed, well-nourished Mouth exam: PRESENT: moist Respiratory exam: PRESENT: chest wall tenderness, unlabored. ABSENT: tachypnea, wheezes Cardiovascular exam: PRESENT: +S1, +S2, tachycardia GI/Abdominal exam: PRESENT: soft. ABSENT: tenderness Extremities exam: ABSENT: +1 edema Neurological exam: PRESENT: alert, awake, CN II-XII grossly intact Psychiatric exam: PRESENT: anxious, appropriate affect, normal mood Focused psych exam: ABSENT: pressured speech Skin exam: PRESENT: dry, intact Results Laboratory Results: 10/08/18 03:47 10/08/18 03:47 10/07/18 10/07/18 10/08/18 17:18 17:18 03:47 WBC 8.1 4.7 RBC 5.19 4.86 Hgb 16.2 15.2 Hct 48.3 44.4 MCV 93 91 MCH 31.3 31.2 MCHC 33.6 34.2 RDW 12.8 13.0 Plt Count 377 246 Seg Neutrophils % 55.6 Lymphocytes % 32.4 Monocytes % 10.2 Eosinophils % 1.0 Basophils % 0.8 Absolute Neutrophils 4.5 Absolute Lymphocytes 2.6 Absolute Monocytes 0.8 Absolute Eosinophils 0.1 Absolute Basophils 0.1 Sodium 143.7 Potassium 3.8 Chloride 103 Carbon Dioxide 24 Anion Gap 17 BUN 15 Creatinine 0.92 Est GFR ( Amer) > 60 Est GFR (Non-Af Amer) > 60 Glucose 108 Calcium 9.9 Magnesium Total Bilirubin 0.8 AST 47 ALT 36 Alkaline Phosphatase 62 Total Protein 7.8 Albumin 5.3 H Triglycerides Cholesterol LDL Cholesterol Direct VLDL Cholesterol HDL Cholesterol TSH Free T4 Free T3 pg/mL 10/08/18 10/08/18 03:47 03:47 WBC RBC Hgb Hct MCV MCH MCHC RDW Plt Count Seg Neutrophils % Lymphocytes % Monocytes % Eosinophils % Basophils % Absolute Neutrophils Absolute Lymphocytes Absolute Monocytes Absolute Eosinophils Absolute Basophils Sodium 143.4 Potassium 3.5 L Chloride 109 H Carbon Dioxide 27 Anion Gap 7 BUN 12 Creatinine 0.77 Est GFR ( Amer) > 60 Est GFR (Non-Af Amer) > 60 Glucose 98 Calcium 9.4 Magnesium 2.4 H Total Bilirubin AST ALT Alkaline Phosphatase Total Protein Albumin Triglycerides 127 Cholesterol 149.81 LDL Cholesterol Direct 106 H VLDL Cholesterol 25.0 HDL Cholesterol 31 L TSH 0.91 Free T4 1.10 Free T3 pg/mL 4.07 10/07/18 10/07/18 10/07/18 17:18 17:18 21:13 Creatine Kinase 575 H CK-MB (CK-2) 4.72 H Troponin I < 0.012 < 0.012 10/07/18 10/08/18 10/08/18 21:13 03:47 09:53 Creatine Kinase CK-MB (CK-2) 3.21 2.35 1.98 Troponin I Cancelled < 0.012 < 0.012 Impressions: Chest X-Ray 10/07/18 17:22 IMPRESSION: Prior granulomatous disease. No acute cardiopulmonary findings. Assessment & Plan - Diagnosis (1) Chest pain Qualifiers: Chest pain type: unspecified Qualified Code(s): R07.9 - Chest pain, unspecified Is this a current diagnosis for this admission?: Yes Plan: Patients chest pain is likely non-cardiac in origin given temporal relationship with worsening anxiety - Has had troponin negative * 3 - EKG's show non specific changes - Risk factors: age, male, + family history, HTN - Will obtain cardiac stress test, delayed until 10/09 due to elevated BP - Has Nubain ordered PRN - COntinue to monitor on tele (2) Generalized anxiety disorder with panic attacks Is this a current diagnosis for this admission?: Yes Plan: 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 If tolerated, can increase to 10mg BID in 3 days - Continue 0.5mg Klonopin PRN - Should be seen by psychiatry as an outpatient (3) Essential hypertension, malignant Is this a current diagnosis for this admission?: Yes Plan: BP's remain elevated on 10/08 - Continue Cozaar - Started Metoprolol 25mg BID - Has PRN Hydralazine ordered (4) Syncope Qualifiers: Syncope type: psychogenic syncope Qualified Code(s): F48.8 - Other specified nonpsychotic mental disorders Is this a current diagnosis for this admission?: Yes Plan: No additional syncopal episodes during this admission - Time Time Spent with patient: 15-24 minutes Anticipated discharge: Home Within: within 24 hours, within 48 hours - Pending stress test
[2018-10-08] MEDS: BUSPIRONE HCL 10 MG TABLET PO SCH ×2 (14:03→21:39)
[2018-10-08] MEDS: METOPROLOL TARTRATE 25 MG TABLET PO SCH ×2 (14:05→21:59)
[2018-10-09] MEDS: HYDRALAZINE HCL INJ/PF 20 MG/1 ML SDV IV PRN (04:37)
[2018-10-09] MEDS: HEPARIN SOD (PORCINE) 5,000 UNIT/ML 1 ML SYRINGE SUBCUT SCH ×2 (05:39→13:15)
[2018-10-09] MEDS: CLONAZEPAM 1 MG TABLET PO PRN ×2 (06:15→14:40)
[2018-10-09] MEDS: ACETAMINOPHEN 325 MG TABLET PO PRN (07:00)
[2018-10-09] MEDS ORDERED: AMLODIPINE BESYLATE 5 MG TABLET PO SCH (10:00)
[2018-10-09 10:29] LABS: HEMATOCRIT 46.8 % (37.9-51.0); HEMOGLOBIN 15.9 g/dL (13.5-17.0); MEAN CORPUSCULAR HEMOGLOBIN 31.2 pg (27.0-33.4); MEAN CORPUSCULAR HGB CONC 33.9 g/dL (32.0-36.0); MEAN CORPUSCULAR VOLUME 92 fl (80-97); PLATELET COUNT 295 10^3/uL (150-450); RED BLOOD COUNT 5.08 10^6/uL (4.35-5.55); RED CELL DISTRIBUTION WIDTH 13.2 % (11.5-14.0); WHITE BLOOD COUNT 6.8 10^3/uL (4.0-10.5)
[2018-10-09 10:57] LABS: ANION GAP 11 (5-19); BLOOD UREA NITROGEN 15 mg/dL (7-20); CALCIUM 9.7 mg/dL (8.4-10.2); CARBON DIOXIDE 24 mmol/L (22-30); CHLORIDE 106 mmol/L (98-107); GLUCOSE 116 mg/dL (75-110); POTASSIUM 3.8 mmol/L (3.6-5.0); SODIUM 141.4 mmol/L (137-145)
[2018-10-09] MEDS: FAMOTIDINE 20 MG TABLET PO SCH (11:22)
[2018-10-09] MEDS: DOCUSATE SODIUM 100 MG CAPSULE PO SCH (11:22)
[2018-10-09] MEDS: LOSARTAN POTASSIUM 50 MG TABLET PO SCH (11:33)
[2018-10-09] MEDS: BUSPIRONE HCL 10 MG TABLET PO SCH (11:33)
[2018-10-09] MEDS ORDERED: REGADENOSON INJ 0.4 MG/5 ML DISP.SYRIN IV ONE (11:44)
[2018-10-09 12:48] VITALS: BP 172/104
--- NOTE | 2018-10-09 12:55 | DRAGON STRESS TEST REPORT ---
Intravenous Lexiscan Cardiolite stress test using single photon emmision computerized tomography. Date of procedure: 10/09/2018. Ordering Provider: Dr. Delgado. Patient's status: In Patient. Indication: Chest pain. Coronary risk factors: Age, hypertension, and family history of coronary artery disease. Resting EKG: Sinus Rhythm. Early R/S transition. No acute changes. Stress EKG: No changes of ischemia. The patient had no chest pain or discomfort, and there were no arrhythmias seen. Reason for termination: Protocol. Conclusions: Normal EKG and hemodynamic response to IV Lexiscan. Nuclear data: At rest the patient was given 15.75 millicuries of technetium 99m sestamibi injected intravenously. As per protocol rest non gated SPECT images were obtained. Subsequently the patient was given intravenous Lexiscan at a dose of 0.4 mg in 5 mL intravenously, followed by flush with normal saline. Subsequently the stress dose of 45.5 millicuries of technetium 99m sestamibi was injected intravenously. As per protocol stress gated images were obtained. Nuclear interpretation: Review of images showed that there is bowel contamination artifact of the inferior wall. In spite of this all segments of the myocardium had normal perfusion at rest, and normal perfusion post stress with IV Lexiscan. All segments of the myocardium had normal motion, contraction, and thickening by gated study. T. I D. ratio was normal at 0.98. There is no transient ischemic dilatation of the left ventricle. Computer read rest, and stress left ventricular ejection fraction were 52 %, and 54 %, respectively. Visually both the stress and rest ejection fractions were normal, and greater than 55%. Conclusion: 1. There is no scintigraphic evidence of Lexiscan induced myocardial ischemia. 2. There is no scintigraphic evidence of myocardial infarction/scar. Recommendations: Aggressive risk factor modification, and treating the underlying co- morbidities. MTDD
--- NOTE | 2018-10-09 14:25 | PDOC DISCHARGE SUMMARY ---
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 this may be exacerbated by anxiety, however patient likely has underlying HTN - Two new scripts are given for Losartan 100mg daily and Metoprolol 25mg twice daily - Advised to follow up with PCP for optomizing treatment regimen (3) Chest pain Is this a current diagnosis for this admission?: Yes Summary: Due to anxiety - Cardiac work up was negative including negative troponin * 3, a stress test on 10/09 which was normal (4) Syncope Is this a current diagnosis for this admission?: Yes - Additional Information Resuscitation Status: Full Code Discharge Diet: Cardiac Discharge Activity: Activity As Tolerated, Balance Activity w/Rest Prescriptions: Buspirone HCl [Buspar 10 mg Tablet] 10 mg PO Q12 #60 tablet Clonazepam [Klonopin 1 mg Tablet] 0.5 mg PO Q8HP PRN #5 tablet PRN Reason: Losartan Potassium [Cozaar 50 mg Tablet] 100 mg PO DAILY #30 tablet Metoprolol Tartrate [Lopressor 25 mg Tablet] 25 mg PO Q12 #60 tablet Home Medications: Acetaminophen [Tylenol Extra Strength 500 mg Tablet] 1,000 mg PO Q4HP PRN Multivit-Mins/Iron/Folic/Lycop [Centrum Men's Tablet] 1 tab PO DAILY 10/08/18 Buspirone HCl [Buspar 10 mg Tablet] 10 mg PO Q12 #60 tablet 10/09/18 Clonazepam [Klonopin 1 mg Tablet] 0.5 mg PO Q8HP PRN #5 tablet 10/09/18 Losartan Potassium [Cozaar 50 mg Tablet] 100 mg PO DAILY #30 tablet 10/09/18 Metoprolol Tartrate [Lopressor 25 mg Tablet] 25 mg PO Q12 #60 tablet 10/09/18 History of Present Illness History of Present Illness: FRANKIE SLATER II is a 43 year old male with history of generalized anxiety presented to the emergency room via EMS from the [facility] with a complaint of chest pain. He admits that he has been having chest pain for the last 3 weeks which he describes as a nearly continuously present while awake, waxing and waning, moderate to severe tightness/pressure discomfort over his bilateral anterior chest wall with occasional radiation to the bilateral shoulders (experienced as a burning sensation) as well as when the pain is most severe it is radiated to the upper back and base of the neck. He further admits that his chest pain is accompanied by numbness and tingling in his lips, a sensation of tunnel vision, lightheadedness and hyperventilation/acute episodic dyspnea. On the episode which occurred at the [facility] just prior to his coming to the emergency room he experienced a 10-second episode of syncope however he knew that he was about to pass out and informed the staff that that was how he was feeling just prior to his syncopal episode. He has no memory of the actual syncopal episode but clearly remembers everything from the point of waking from the episode and being informed that he was unconscious for about 10 seconds. He admits that he has had significant problems with anxiety for quite some time and has been seeking help at the [facility] with little or no success. Additionally he admits that he has known hypertension since his teenage years but he has discontinued the use of antihypertensive medications for more than 2 years. He denies prior similar episodes, but has identified stress as a definite aggravating factor for his chest pain and other symptoms and has also identified sitting calmly in meditating as a ameliorating factor for his chest pain and other symptoms. In the emergency room he was found to have a normal EKG and a negative troponin I. Because of his risk factors he was admitted to the hospital for further evaluation and treatment to include a cardiac stress test and initiation of appropriate therapy for his generalized anxiety disorder with panic attacks. Physical Exam Vital Signs: Temp Pulse Resp BP Pulse Ox 98.9 F 98 18 172/104 H 99 10/09/18 12:00 10/09/18 14:00 10/09/18 12:00 10/09/18 12:00 10/09/18 12:00 Intake & Output 10/08/18 10/09/18 10/10/18 06:59 06:59 06:59 Intake Total 1150 3180 Output Total 775 2580 Balance 375 600 Weight 116.7 kg 115.2 kg General appearance: PRESENT: no acute distress, cooperative, well-developed, well-nourished Head exam: PRESENT: atraumatic Mouth exam: PRESENT: moist Respiratory exam: PRESENT: unlabored. ABSENT: tachypnea, wheezes Cardiovascular exam: PRESENT: +S1, +S2. ABSENT: tachycardia GI/Abdominal exam: PRESENT: normal bowel sounds, soft. ABSENT: tenderness Extremities exam: ABSENT: +1 edema Neurological exam: PRESENT: alert, awake, CN II-XII grossly intact Psychiatric exam: PRESENT: appropriate affect, normal mood Skin exam: PRESENT: dry, intact Results Laboratory Results: 10/09/18 09:07 10/09/18 09:07 10/09/18 10/09/18 09:07 09:07 WBC 6.8 RBC 5.08 Hgb 15.9 Hct 46.8 MCV 92 MCH 31.2 MCHC 33.9 RDW 13.2 Plt Count 295 Sodium 141.4 Potassium 3.8 Chloride 106 Carbon Dioxide 24 Anion Gap 11 BUN 15 Creatinine 0.85 Est GFR ( Amer) > 60 Est GFR (Non-Af Amer) > 60 Glucose 116 H Calcium 9.7 Magnesium 2.3 10/07/18 10/07/18 10/07/18 17:18 17:18 21:13 Creatine Kinase 575 H CK-MB (CK-2) 4.72 H Troponin I < 0.012 < 0.012 10/07/18 10/08/18 10/08/18 21:13 03:47 09:53 Creatine Kinase CK-MB (CK-2) 3.21 2.35 1.98 Troponin I Cancelled < 0.012 < 0.012 Impressions: Chest X-Ray 10/07/18 17:22 IMPRESSION: Prior granulomatous disease. No acute cardiopulmonary findings. Cardiolite Stress test 10/09/18 1. There is no scintigraphic evidence of Lexiscan induced myocardial ischemia 2. There is no scintigraphic evidence of myocardial infection/scar Qualifiers - * PATIENT BEING DISCHARGED WITH ANY OF THE FOLLOWING DIAGNOSIS: No Plan Time Spent: Less than 30 Minutes
== END 2018-10-09 15:05 | disposition home or self-care (01) | DRG 880 ==
LOC: ER 17:09 → OBSVTOIN 20:39 → EH 20:39 → 4S 22:34
PROVIDERS: ADMIT Emergency Medicine; ATTEND Emergency Medicine
DX: F41.1 Generalized anxiety disorder (principal); F43.10 Post-traumatic stress disorder, unspecified; F41.0 Panic disorder [episodic paroxysmal anxiety]; R20.0 Anesthesia of skin; I10 Essential (primary) hypertension; E66.9 Obesity, unspecified; F48.8 Other specified nonpsychotic mental disorders; Z79.899 Other long term (current) drug therapy; Z79.891 Long term (current) use of opiate analgesic; Z79.1 Long term (current) use of non-steroidal anti-inflammatories (NSAID); Z83.3 Family history of diabetes mellitus; Z80.9 Family history of malignant neoplasm, unspecified; Z82.49 Family history of ischemic heart disease and other diseases of the circulatory system
CPT/HCPCS: 36415; 71045; 78452; 80048; 80053; 80061; 82550; 82553; 83036; 83735; 84439; 84443; 84481; 84484; 85025; 85027; 93005; 93010; 93017; 96361; 96372; 96374; 99285; A9500; J0360; J1644; J2060; J2785; J3490; J7030; Q9969

== ENCOUNTER 2019-05-23 20:08 | Emergency (ER) | payer OTHER ==
--- NOTE | 2019-05-23 21:10 | ER Document Report ---
ED Medical Screen (RME) - General Chief Complaint: Chest Pain > 30 Stated Complaint: CHEST PAINS Time Seen by Provider: 05/23/19 21:00 Primary Care Provider: NATHALIA GARRETT [Primary Care Provider] - Follow up as needed Notes: Patient is a 44-year-old male who presents emergency department with a chief complaint of chest pain. He has had flulike symptoms for the past 5 days. Patient has a history of hypertension. Pain is in her mid chest. States his he has had hot and cold flashes. Exam: S1, S2. Clear lung sounds bilaterally. I have greeted and performed a rapid initial assessment of this patient. A comprehensive ED assessment and evaluation of the patient, analysis of test results and completion of medical decision making process will be conducted by an additional ED providers. TRAVEL OUTSIDE OF THE [place] IN LAST 30 DAYS: No - Related Data Allergies/Adverse Reactions: No Known Allergies Allergy (Verified 05/23/19 20:59) Past Medical History - Social History Chew tobacco use (# tins/day): No - history but reports quit 5-6 years ago Frequency of alcohol use: None Drug Abuse: Marijuana - Past Medical History Cardiac Medical History: Reports: Hx Hypertension Denies: Hx Coronary Artery Disease, Hx DVT, Hx Heart Attack, Hx Hypercholesterolemia, Hx Pulmonary Embolism Pulmonary Medical History: Denies: Hx Asthma, Hx Bronchitis, Hx COPD, Hx Pneumonia Neurological Medical History: Denies: Hx Cerebrovascular Accident, Hx Migraine, Hx Seizures Endocrine Medical History: Denies: Hx Diabetes Mellitus Type 1, Hx Diabetes Mellitus Type 2, Hx Hyperthyroidism, Hx Hypothyroidism Renal/ Medical History: Denies: Hx Peritoneal Dialysis GI Medical History: Denies: Hx Cirrhosis, Hx Hepatitis Musculoskeltal Medical History: Denies Hx Arthritis, Denies Hx Fibromyalgia, Denies Hx Gout Skin Medical History: Denies Hx Eczema, Denies Hx Psoriasis Psychiatric Medical History: Reports: Hx Depression, Hx 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 Infectious Medical History: Denies: Hx Hepatitis - Immunizations Hx Diphtheria, Pertussis, Tetanus Vaccination: Yes Physical Exam - Vital signs Vitals: Temp Pulse Resp BP Pulse Ox 98.9 F 90 18 221/109 H 96 05/23/19 20:50 05/23/19 20:50 05/23/19 20:50 05/23/19 20:50 05/23/19 20:50 Course - Vital Signs Vital signs: Temp Pulse Resp BP Pulse Ox 98.9 F 90 18 210/110 H 98 05/23/19 20:50 05/23/19 20:50 05/23/19 20:50 05/23/19 22:54 05/23/19 22:53 - Laboratory Result Diagrams: 05/23/19 21:29 05/23/19 21:29 Laboratory results interpreted by me: 05/23/19 21:29 Potassium 3.5 L Glucose 138 H Calcium 10.3 H Creatine Kinase 198 H Albumin 5.1 H Doctor's Discharge - Discharge [facility] - Follow up as needed
[2019-05-23 21:43] LABS: ABSOLUTE EOSINOPHILS # (AUTO) 0.1 10^3/uL (0.0-0.6); ABSOLUTE MONOCYTES (AUTO) 0.6 10^3/uL (0.1-1.4); BASOPHILS % (AUTO) 0.3 % (0-2); HEMATOCRIT 50.2 % (37.9-51.0); HEMOGLOBIN 16.9 g/dL (13.5-17.0); MEAN CORPUSCULAR HEMOGLOBIN 31.3 pg (27.0-33.4); MEAN CORPUSCULAR HGB CONC 33.8 g/dL (32.0-36.0); MEAN CORPUSCULAR VOLUME 93 fl (80-97); MONOCYTES % (AUTO) 9.5 % (3-13); PLATELET COUNT 291 10^3/uL (150-450); RED BLOOD COUNT 5.41 10^6/uL (4.35-5.55); RED CELL DISTRIBUTION WIDTH 13.1 % (11.5-14.0); SEGMENTED NEUTROPHILS % (AUTO) 74.2 % (42-78); TOTAL CELLS COUNTED % (AUTO) 100 %; WHITE BLOOD COUNT 6.8 10^3/uL (4.0-10.5)
[2019-05-23 21:53] LABS: ALBUMIN 5.1 g/dL (3.5-5.0); ALKALINE PHOSPHATASE 66 U/L (38-126); ANION GAP 12 (5-19); ASPARTATE AMINO TRANSFERASE 28 U/L (17-59); BILIRUBIN,DIRECT 0.1 mg/dL (0.0-0.4); BILIRUBIN,TOTAL 0.8 mg/dL (0.2-1.3); BLOOD UREA NITROGEN 17 mg/dL (7-20); CALCIUM 10.3 mg/dL (8.4-10.2); CARBON DIOXIDE 27 mmol/L (22-30); CHLORIDE 101 mmol/L (98-107); CREATINE KINASE 198 U/L (55-170); GLUCOSE 138 mg/dL (75-110); POTASSIUM 3.5 mmol/L (3.6-5.0); TOTAL PROTEIN 7.9 g/dL (6.3-8.2)
[2019-05-23 22:03] LABS: CREATINE KINASE MB 1.45 ng/mL (<4.55)
[2019-05-23 22:16] LABS: TROPONIN I < 0.012 ng/mL
--- NOTE | 2019-05-23 22:24 | RADIOLOGY REPORT (SQ) ---
EXAM DESCRIPTION: XR CHEST 1 VIEW COMPLETED DATE/TME: 05/23/2019 21:09 CLINICAL HISTORY: 44 years, Male, chest pain COMPARISON: X-ray chest 10/07/2018 NUMBER OF VIEWS: TECHNIQUE: LIMITATIONS: None. FINDINGS: No evidence of pulmonary infiltrate or pleural effusion. There are several calcified pulmonary granulomas. The heart and mediastinum are unremarkable. Pulmonary vascularity appears normal. There is no significant change, as compared with the prior x-ray(s). IMPRESSION: No acute finding. copyright 2010 [employer]- All Rights Reserved
[2019-05-23] MEDS ORDERED: LORAZEPAM INJ 2 MG/1 ML VIAL IV ONE (23:10)
[2019-05-23] MEDS ORDERED: LOSARTAN POTASSIUM 50 MG TABLET PO ONE (23:10)
[2019-05-23] MEDS ORDERED: METOPROLOL TARTRATE 25 MG TABLET PO ONE (23:12)
--- NOTE | 2019-05-23 23:17 | ER Document Report ---
ED General - General Chief Complaint: Chest Pain > 30 Stated Complaint: CHEST PAINS Time Seen by Provider: 05/23/19 21:00 Primary Care Provider: [facility] [Primary Care Provider] - Follow up as needed Mode of Arrival: Ambulatory Information source: Patient Notes: 44-year-old male presents to ED for complaint of chest pain flulike symptoms high blood pressure the last 5 days. He states he had hot and cold flashes. He also has an extensive history of anxiety and depression. He [facility] and [facility] did not go back and get his anxiety medicine or his blood pressure medicine. He states he has not been taking his blood pressure medicine or his anxiety medicine. He states he had some chest pain at home and the more he heard the more anxious he got the more anxious he got the more his chest hurt. He states his blood pressure was going higher and higher so he finally decided to come into the emergency room. He states he had a cardi ac episode earlier this year and ended up getting a complete cardiac work-up that was all negative to include a stress test. TRAVEL OUTSIDE OF THE [place] IN LAST 30 DAYS: No - HPI Onset: This afternoon Onset/Duration: Gradual, Worse Quality of pain: Pressure, Sharp Associated symptoms: Chest pain, Chills, Nonproductive cough, Rhinnorhea - Hot flashes, Sinus pain/drainage, Other - Hot flashes chills and severe anxiety Exacerbated by: Other - States more anxious he got the more his chest hurt more his chest hurt the more anxious he got which both caused his blood pressure to go up Relieved by: Denies Similar symptoms previously: Yes Recently seen / treated by doctor: No - Related Data Allergies/Adverse Reactions: No Known Allergies Allergy (Verified 05/23/19 20:59) Past Medical History - General Information source: Patient - Social History Smoking Status: Never Smoker Chew tobacco use (# tins/day): No - history but reports quit 5-6 years ago Frequency of alcohol use: None Drug Abuse: Marijuana Lives with: Family Family History: CAD, DM, Hypertension, Malignancy Patient has suicidal ideation: No Patient has homicidal ideation: No - Past Medical History Cardiac Medical History: Reports: Hx Hypertension, Other - States he has had chest pain before but is always had a negative cardiac wo Pulmonary Medical History: Reports: None EENT Medical History: Reports: None Neurological Medical History: Reports: None Endocrine Medical History: Reports: None Renal/ Medical History: Reports: None Malignancy Medical History: Reports None GI Medical History: Reports: None Musculoskeletal Medical History: Reports Hx Musculoskeletal Deformity, Reports Hx Musculoskeletal Trauma Skin Medical History: Reports None Psychiatric Medical History: Reports: Hx Anxiety, Hx Depression, Hx Post Traumatic Stress Disorder - [place] 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 Traumatic Medical History: Reports: Hx Fractures Infectious Medical History: Reports: None - Immunizations Hx Diphtheria, Pertussis, Tetanus Vaccination: Yes Review of Systems - Review of Systems Constitutional: Chills, Recent illness EENT: Nose congestion, Sinus pressure Cardiovascular: Chest pain, Palpitations, Other Respiratory: Cough Gastrointestinal: No symptoms reported Genitourinary: No symptoms reported Male Genitourinary: No symptoms reported Musculoskeletal: No symptoms reported Skin: No symptoms reported Hematologic/Lymphatic: No symptoms reported Neurological/Psychological: Anxiety, Headaches, Other - Panic -: Yes All other systems reviewed and negative Physical Exam - Vital signs Vitals: Temp Pulse Resp BP Pulse Ox 98.9 F 90 18 221/109 H 96 05/23/19 20:50 05/23/19 20:50 05/23/19 20:50 05/23/19 20:50 05/23/19 20:50 Interpretation: Hypertensive - 210/110 manually on the right arm that I took - General General appearance: Appears well, Alert - HEENT Head: Normocephalic, Atraumatic Eyes: Normal Pupils: PERRL - Respiratory Respiratory status: No respiratory distress Chest status: Nontender Breath sounds: Normal Chest palpation: Normal - Cardiovascular Rhythm: Regular Heart sounds: Normal auscultation Murmur: No - Abdominal Inspection: Normal Distension: No distension Bowel sounds: Normal Tenderness: Nontender Organomegaly: No organomegaly - Back Back: Normal, Nontender - Extremities General upper extremity: Normal inspection, Nontender, Normal color, Normal ROM, Normal temperature General lower extremity: Normal inspection, Nontender, Normal color, Normal ROM, Normal temperature, Normal weight bearing. No: Devaughn's sign - Neurological Neuro grossly intact: Yes Cognition: Normal Orientation: AAOx4 Ben Coma Scale Eye Opening: Spontaneous Ben Coma Scale Verbal: Oriented [place] Coma Scale Motor: Obeys Commands Ben Coma Scale Total: 15 Speech: Normal Motor strength normal: LUE, RUE, LLE, RLE Sensory: Normal - Psychological Associated symptoms: Anxious, Other - States he gets very anxious which causes chest pain which causes his blood pressure goes up which causes him to be more anxious - Skin Skin Temperature: Warm Skin Moisture: Dry Skin Color: Normal Course - Re-evaluation Re-evalutation: 05/24/19 01:[address] Bob multiple times due to the blood pressure in the treatment. Patient was treated with metoprolol losartan and Xanax p.o. then he was treated with clonidine 0.1 mg. Patient's blood pressure at this time taken manually on the right arm was 185/100 the pressure on the machine is much higher than each of the manual blood pressures I have gotten. Patient will be discharged home with a prescription for the metoprolol tartrate losartan. He states he has [facility]. He states he is not having any chest pain at this time. Both troponins were negative. He states he feels much better since the Ativan. - Vital Signs Vital signs: Temp Pulse Resp BP Pulse Ox 98.9 F 90 14 191/119 H 99 05/23/19 20:50 05/23/19 20:50 05/24/19 01:48 05/24/19 01:48 05/24/19 01:48 - Laboratory Result Diagrams: 05/23/19 21:29 05/23/19 21:29 Laboratory results interpreted by me: 05/23/19 21:29 Potassium 3.5 L Glucose 138 H Calcium 10.3 H Creatine Kinase 198 H Albumin 5.1 H - Diagnostic Test Radiology reviewed: Image reviewed, Reports reviewed Discharge - Discharge Clinical Impression: Essential hypertension, malignant, Generalized anxiety disorder with panic attacks Chest pain Qualifiers: Chest pain type: unspecified Qualified Code(s): R07.9 - Chest pain, unspecified Condition: Stable Disposition: HOME, SELF-CARE Additional Instructions: CHEST PAIN OF UNCLEAR CAUSE: The exact cause of your chest pain isn't clear. Fortunately, there is no evidence of a dangerous medical condition. Further testing may be required to find the source of the pain. Most often, we find that this pain is coming from the chest wall -- the muscles or rib joints in the chest. But chest pain can come from the lung and lung lining, the esophagus, the heart valves or heart lining, and even the stomach or gallbladder. Rest. Eat lightly until the pain is gone. We may prescribe medicine for pain and inflammation. You should call the physician immediately if the pain radiates to the shoulder, jaw or arms; if you start to run a fever or develop a cough; or if you develop shortness of breath, or other new or alarming symptoms. Anxiety The physician feels that some of your health problems are being caused by anxiety. Anxiety affects your health in many ways. Anxiety alone can cause palpitations, sweats, chest pains, abdominal pains, shortness of breath, and headaches. It contributes to ulcer disease, high blood pressure, irritable bowel syndrome, and has been shown to cause flare-ups of many other diseases. Anxiety is not a simple disorder to treat. If the anxiety is due to recent life stresses, you may simply need time to "work through" the changes. If the anxiety is due to an underlying unhappiness with yourself or due to psychiatric disturbance, professional help will be needed. Your physician can refer you for further help if needed. Anti-anxiety medication is occasionally given if the stress is acute or if you are having trouble sleeping. Chronic or frequent use of these medications is not a good idea because the body becomes reliant on it, preventing you from dealing with life's normal stresses. HIGH BLOOD PRESSURE REQUIRING TREATMENT: Your blood pressure is high. This is called "hypertension." Today's reading was (normal is less than 140/90). Your history and exam suggest that this is not a temporary problem. You need treatment of your blood pressure. If left untreated, high blood pressure greatly increases your risk of heart attack and stroke. Please don't ignore this problem. If you have blood pressure medicine but aren't using it regularly, start taking it again. Some simple things you can do to help are: Get some aerobic exercise for at least 20 minutes on a daily basis. (See your doctor before beginning any new exercise program.) Eat a low-fat diet. Lose excess weight. Avoid salty foods and avoid adding salt to any of the foods you eat. Avoid diet pills, decongestants, "energizing" herbs, and other medicines that elevate blood pressure. There are many different medicines that treat blood pressure. If your medication causes unpleasant side effects, call your doctor. There are others you can try. Treating hypertension is a life-long investment in your health. CLONIDINE (CATAPRES): Clonidine is blood-pressure medicine. It works in your brain, making the nervous system relax the blood vessels. This medicine can also be used for symptoms of narcotic withdrawal. Clonidine frequently causes dry mouth, drowsiness, and dizziness. These symptoms go away as you continue to use it. Rest for the first couple of days. Don't drive or use machinery until you're back to normal. Never stop clonidine suddenly! There can be a "rebound" severe increase in blood pressure, headache, and agitation. Be sure you always have enough of the medicine. Call the doctor if you have any new symptoms such as skin rash, weakness, severe lightheadedness, chest pain, headache, or depression. Benzodiazepines You have been given a benzodiazepine medication. Examples of this type of medicine include Valium, Xanax, Librium, Ativan, and Halcion. Benzodiazepines have many uses. Medications of this type are used for insomnia, anxiety, muscle spasms, seizures, and drug and alcohol withdrawal. You may become very drowsy when you first take the medication. You should not drive or operate machinery while under its effects. Do not combine the medication with alcohol, or with any other medication without talking to your doctor. Do not take if without specific instruction from your lining feller blindstitch. Some benzodiazepines may have harmful interactions with oral antifungal medicines such as ketoconazole, itraconazole, and nefazodone. If you are taking an antifungal medicine, discuss this with your doctor before taking benzodiazepines. BETA BLOCKERS: You have been given a prescription for a beta-christiana medication. This class of drugs is used for many purposes, including angina, high blood pressure, heart rhythm disturbances, tremors, and migraines. The medication works by interfering with the effects of the sympathetic nervous system (the sympathetic system has adrenaline-like effects of constricting blood vessels, increasing heart rate, and increasing blood pressure). This medication is usually well-tolerated. However, some patients have side effects such as fatigue, depression, or dizziness. Persons with asthma may develop wheezing from this medicine. Contact your doctor if you are bothered by any side effects. Do not take any cold or allergy medication without first consulting your doctor. Do not stop the medicine without consulting your doctor, as a "rebound" worsening of your condition can result. FOLLOW-UP CARE: If you have been referred to a physician for follow-up care, call the physicians office for an appointment as you were instructed or within the next two days. If you experience worsening or a significant change in your symptoms, notify the physician immediately or return to the Emergency Department at any time for re-evaluation. Prescriptions: Metoprolol Tartrate [Lopressor 25 mg Tablet] 25 mg PO DAILY #30 tab Losartan Potassium 50 mg PO DAILY #30 tablet Forms: Elevated Blood Pressure, Parent Work Note [facility] [[facility] - Follow up as needed
[2019-05-24] MEDS ORDERED: CLONIDINE HCL 0.1 MG TABLET PO ONE (00:40)
[2019-05-24 02:07] VITALS: BP 185/100
--- NOTE | 2019-05-24 07:43 | EKG REPORT ---
SEVERITY:- ABNORMAL ECG - SINUS RHYTHM BORDERLINE LEFT AXIS DEVIATION NONSPECIFIC IVCD : Confirmed by: Raymond Mcginnis MD 24-May-2019 07:43:07
== END 2019-05-24 02:27 | disposition home or self-care (01) ==
LOC: ER 20:08
DX: F41.1 Generalized anxiety disorder (principal); F41.0 Panic disorder [episodic paroxysmal anxiety]; I10 Essential (primary) hypertension; R07.89 Other chest pain; R68.83 Chills (without fever); R05 Cough; J34.89 Other specified disorders of nose and nasal sinuses; R00.2 Palpitations; R51 Headache; R09.81 Nasal congestion
CPT/HCPCS: 93005; 99285; 96374; 36415; 82553; 82550; 83735; 85025; 80053; 84484; 71045; 93010; J2060

== ENCOUNTER 2019-05-25 11:48 | Emergency (ER) | payer OTHER ==
[2019-05-25] MEDS ORDERED: ASPIRIN 81 MG TABLET, CHEWABLE PO ONE (12:14)
--- NOTE | 2019-05-25 12:16 | ER Document Report ---
ED Medical Screen (RME) - General Chief Complaint: Chest Pain Stated Complaint: ANXIETY/CHEST PAIN Time Seen by Provider: 05/25/19 12:12 Primary Care Provider: TAMI,NATHALIA [Primary Care Provider] - Follow up as needed Mode of Arrival: Wheelchair Information source: Patient Notes: This 44-year-old male with history of anxiety returns to the emergency department for complaints of left-sided chest pain radiating to his back. Reports he was seen here on Wednesday for the same symptoms. He reports some nausea. Reports that he was prescribed medications. Reports he is not sure if hits the anxiety or the chest pain. history of HTN. I have greeted and performed a rapid initial assessment of this patient. A comprehensive ED assessment and evaluation of the patient, analysis of test results and completion of the medical decision making process will be conducted by additional ED providers. Dictation of this chart was performed using voice recognition software; therefore, there may be some unintended grammatical errors. TRAVEL OUTSIDE OF THE [place] IN LAST 30 DAYS: No - Related Data Allergies/Adverse Reactions: lisinopril Allergy (Verified 05/25/19 12:10) Past Medical History - Past Medical History Cardiac Medical History: Reports: Hx Hypertension Denies: Hx Coronary Artery Disease, Hx DVT, Hx Heart Attack, Hx Hypercholesterolemia, Hx Pulmonary Embolism Pulmonary Medical History: Denies: Hx Asthma, Hx Bronchitis, Hx COPD, Hx Pneumonia Neurological Medical History: Denies: Hx Cerebrovascular Accident, Hx Migraine, Hx Seizures Endocrine Medical History: Denies: Hx Diabetes Mellitus Type 1, Hx Diabetes Mellitus Type 2, Hx Hyperthyroidism, Hx Hypothyroidism Renal/ Medical History: Denies: Hx Peritoneal Dialysis GI Medical History: Denies: Hx Cirrhosis, Hx Hepatitis Musculoskeltal Medical History: Denies Hx Arthritis, Denies Hx Fibromyalgia, Denies Hx Gout, Reports Hx Musculoskeletal Deformity, Reports Hx Musculoskeletal Trauma Skin Medical History: Denies Hx Eczema, Denies Hx Psoriasis Psychiatric Medical History: Reports: Hx Anxiety, Hx Depression, Hx Post Traumatic Stress Disorder - [place]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
--- NOTE | 2019-05-25 13:01 | EKG REPORT ---
SEVERITY:- ABNORMAL ECG - SINUS RHYTHM LEFT VENTRICULAR HYPERTROPHY PROBABLE INFERIOR INFARCT, OLD : Confirmed by: Raymond Mcginnis MD 25-May-2019 13:00:51
[2019-05-25 13:06] LABS: ABSOLUTE EOSINOPHILS # (AUTO) 0.1 10^3/uL (0.0-0.6); ABSOLUTE LYMPHOCYTES (AUTO) 1.7 10^3/uL (0.5-4.7); ABSOLUTE MONOCYTES (AUTO) 0.6 10^3/uL (0.1-1.4); ABSOLUTE NEUT (AUTO) 4.4 10^3/uL (1.7-8.2); BASOPHILS % (AUTO) 0.6 % (0-2); HEMATOCRIT 51.2 % (37.9-51.0); HEMOGLOBIN 17.5 g/dL (13.5-17.0); LYMPHOCYTES % (AUTO) 24.8 % (13-45); MEAN CORPUSCULAR HEMOGLOBIN 31.5 pg (27.0-33.4); MEAN CORPUSCULAR HGB CONC 34.2 g/dL (32.0-36.0); MEAN CORPUSCULAR VOLUME 92 fl (80-97); MONOCYTES % (AUTO) 9.1 % (3-13); PLATELET COUNT 323 10^3/uL (150-450); RED BLOOD COUNT 5.57 10^6/uL (4.35-5.55); RED CELL DISTRIBUTION WIDTH 13.4 % (11.5-14.0); SEGMENTED NEUTROPHILS % (AUTO) 63.5 % (42-78); TOTAL CELLS COUNTED % (AUTO) 100 %
--- NOTE | 2019-05-25 13:13 | RADIOLOGY REPORT (SQ) ---
EXAM DESCRIPTION: CHEST 2 VIEWS COMPLETED DATE/TIME: 05/25/2019 12:59 pm REASON FOR STUDY: cp COMPARISON: 05/23/2019 EXAM PARAMETERS: NUMBER OF VIEWS: two views TECHNIQUE: Digital Frontal and Lateral radiographic views of the chest acquired. RADIATION DOSE: NA LIMITATIONS: none FINDINGS: LUNGS AND PLEURA: Calcified granulomas. No acute infiltrate or effusion. MEDIASTINUM AND HILAR STRUCTURES: No masses or contour abnormalities. HEART AND VASCULAR STRUCTURES: Heart normal size. No evidence for failure. BONES: No acute findings. HARDWARE: None in the chest. OTHER: No other significant finding. IMPRESSION: NO ACUTE RADIOGRAPHIC FINDING IN THE CHEST. TECHNICAL DOCUMENTATION: JOB ID: [id number] [employer]- All Rights Reserved Reading location - IP/workstation name: [email or web address]
[2019-05-25 13:18] LABS: ALBUMIN 5.2 g/dL (3.5-5.0); ALKALINE PHOSPHATASE 74 U/L (38-126); ANION GAP 12 (5-19); ASPARTATE AMINO TRANSFERASE 25 U/L (17-59); BILIRUBIN,DIRECT 0.1 mg/dL (0.0-0.4); BILIRUBIN,TOTAL 0.9 mg/dL (0.2-1.3); BLOOD UREA NITROGEN 18 mg/dL (7-20); CALCIUM 9.8 mg/dL (8.4-10.2); CARBON DIOXIDE 26 mmol/L (22-30); CHLORIDE 103 mmol/L (98-107); CREATINE KINASE 154 U/L (55-170); GLUCOSE 136 mg/dL (75-110)
[2019-05-25 13:29] LABS: CREATINE KINASE MB 1.15 ng/mL (<4.55)
[2019-05-25 13:30] LABS: TROPONIN I < 0.012 ng/mL
[2019-05-25] MEDS ORDERED: METOPROLOL TARTRATE PF/INJ 5 MG/5 ML SDV IV ONE (15:45)
[2019-05-25] MEDS ORDERED: LORAZEPAM INJ 2 MG/1 ML VIAL IV ONE (15:46)
--- NOTE | 2019-05-25 15:58 | ER Document Report ---
ED General - General Chief Complaint: Chest Pain Stated Complaint: ANXIETY/CHEST PAIN Time Seen by Provider: 05/25/19 12:12 [facility] - Follow up as needed Mode of Arrival: Wheelchair Information source: Patient TRAVEL OUTSIDE OF THE [place] IN LAST 30 DAYS: No - HPI Onset: Last week Onset/Duration: Intermittent Quality of pain: Sharp Severity: Severe Pain Level: 3 Context: Patient is a 44-year-old male with a history of hypertension and PTSD that presents complaining of intermittent elevation in blood pressure and episodes of anxiety. Patient was seen here 2 days ago with the same chief complaint. Patient states that he picked up the blood pressure medications prescribed to him and has been taking them as directed. Patient states that he is still feeling symptomatic despite doing this. Patient states that he feels his symptoms are primarily being driven by anxiety secondary to his PTSD. Patient states that he has been on Buspirone in the past with relief of symptoms. 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 Patient states that he ended up getting a medical discharge from the . Patient states he is tried to get help from the [facility] without success. Associated symptoms: Nausea, Shortness of breath, Other - stress Similar symptoms previously: Yes Recently seen / treated by doctor: Yes Notes: Patient was seen here in this ED 2 days ago for same symptoms. Patient had lab work, EKG, and troponin x2, all unrevealing. Provider that saw patient wrote him prescriptions for 2 blood pressure medications. - Related Data Allergies/Adverse Reactions: lisinopril Allergy (Verified 05/25/19 12:10) Past Medical History - General Information source: Patient - Social History Smoking Status: Never Smoker Chew tobacco use (# tins/day): No Frequency of alcohol use: None Drug Abuse: None Occupation: Patient states he is unemployed at this time Lives with: Family - Patient states he lives with his and kids Family History: CAD, DM, Hypertension, Malignancy Patient has suicidal ideation: No Patient has homicidal ideation: No - Medical History Medical History: Other - Hypertension, PTSD - Past Medical History Cardiac Medical History: Reports: Hx Hypertension Denies: Hx Coronary Artery Disease, Hx DVT, Hx Heart Attack, Hx Hypercholesterolemia, Hx Pulmonary Embolism Pulmonary Medical History: Denies: Hx Asthma, Hx Bronchitis, Hx COPD, Hx Pneumonia EENT Medical History: Reports: None Neurological Medical History: Denies: Hx Cerebrovascular Accident, Hx Migraine, Hx Seizures Endocrine Medical History: Denies: Hx Diabetes Mellitus Type 1, Hx Diabetes Mellitus Type 2, Hx Hyperthyroidism, Hx Hypothyroidism Renal/ Medical History: Reports: None. 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 Traumatic Medical History: Reports: Hx Fractures Infectious Medical History: Denies: Hx Hepatitis - Immunizations Hx Diphtheria, Pertussis, Tetanus Vaccination: Yes Review of Systems - Review of Systems Constitutional: denies: Fever, Weight gain, Weight loss EENT: No symptoms reported Cardiovascular: Chest pain Respiratory: Short of breath Gastrointestinal: Nausea Genitourinary: No symptoms reported Male Genitourinary: No symptoms reported Musculoskeletal: No symptoms reported Skin: No symptoms reported Hematologic/Lymphatic: No symptoms reported Neurological/Psychological: No symptoms reported -: Yes All other systems reviewed and negative Physical Exam - Vital signs Vitals: Temp Pulse Resp BP Pulse Ox 98.8 F 103 H 18 165/103 H 97 05/25/19 12:05 05/25/19 12:05 05/25/19 12:05 05/25/19 12:05 05/25/19 12:05 - General General appearance: Anxious - pt is tearful when he talks about how he is feeling. pt denies chest pain at this time, but states he does feel "on edge." Patient denies shortness of breath at this time. In distress: None - HEENT Head: Normocephalic, Atraumatic Eyes: Normal Pupils: PERRL - Respiratory Respiratory status: No respiratory distress Chest status: Nontender, No pleuritic chest pain. No: Pain on movement Breath sounds: Normal. No: Rhonchi, Stridor, Wheezing Chest palpation: Normal - Cardiovascular Rhythm: Regular Heart sounds: Normal auscultation Murmur: No Friction rub: No James's crunch: No Gallop: None auscultated - Abdominal Inspection: Normal Distension: No distension Bowel sounds: Normal Tenderness: Nontender Organomegaly: No organomegaly - Back Back: Normal, Nontender - Extremities General upper extremity: Normal inspection General lower extremity: Normal inspection - Neurological Neuro grossly intact: Yes Cognition: Normal Orientation: AAOx4 [place] Coma Scale Eye Opening: Spontaneous [place] Coma Scale Verbal: Oriented [place] Coma Scale Motor: Obeys Commands [place] Coma Scale Total: 15 Speech: Normal Motor strength normal: LUE, RUE, LLE, RLE Sensory: Normal - Psychological Associated symptoms: Anxious, Tearful. No: Flight of ideas, Irritable, Labile, Psychomotor agitation - Skin Skin Temperature: Warm Skin Moisture: Dry Skin Color: Normal Course - Re-evaluation Re-evalutation: 05/25/19 19:59 Patient states he is feeling better. Patient feels that the Ativan has really helped his anxiety symptoms. Patient is calm in terms of appearance, makes good eye contact, exhibits rational thought, denies chest pain. Patient's is present at the bedside. Increasing patient's blood pressure medication to twice daily and writing prescription for fifteen 1 mg Ativan tablets discussed with patient and patient's . Patient instructed to follow-up with PCP at [facility] within 5 days. All the patient's questions were answered prior to discharge. Emergency signs and symptoms, reasons for return to emergency department discussed with patient and patient's . - Vital Signs Vital signs: Temp Pulse Resp BP Pulse Ox 98.8 F 103 H 9 L 172/99 H 98 05/25/19 12:05 05/25/19 12:05 05/25/19 20:01 05/25/19 20:01 05/25/19 20:01 05/25/19 20:06 Vital signs were reviewed by this MD. - Laboratory Result Diagrams: 05/25/19 12:25 05/25/19 12:25 Laboratory results interpreted by me: 05/25/19 05/25/19 12:25 12:25 RBC 5.57 H Hgb 17.5 H Hct 51.2 H Glucose 136 H Albumin 5.2 H 05/25/19 20:05 Laboratory results reviewed by this MD. - Diagnostic Test Radiology reviewed: Reports reviewed - EKG Interpretation by Me EKG shows normal: Sinus rhythm, [place] - Borderline left axis deviation, Intervals - Normal intervals, QRS Complexes - QRS complex is narrow, ST-T Waves - Nonspecific ST segments Rate: Normal Additional EKG results interpreted by me: 05/25/19 20:08 Previous EKG from 05/23/2019 reviewed by this MD. Discharge - Discharge Clinical Impression: Hypertension, Anxiety, Generalized anxiety disorder with panic attacks, Chest pain Condition: Good Disposition: HOME, SELF-CARE Instructions: Anxiety ([facility]), High Blood Pressure ([facility]) Additional Instructions: Return to the ED at any time if your symptoms worsen despite taking medication as prescribed. Prescriptions: Lorazepam [Ativan 1 mg Tablet] 1 mg PO Q8H PRN #15 tab MDD 3 mg PRN Reason: Forms: Elevated Blood Pressure [facility] [[facility]] - Follow up in 3-5 days
[2019-05-25 21:07] VITALS: BP 160/104
== END 2019-05-25 22:06 | disposition home or self-care (01) ==
LOC: ER 11:48
DX: F41.1 Generalized anxiety disorder (principal); F41.0 Panic disorder [episodic paroxysmal anxiety]; R07.9 Chest pain, unspecified; I10 Essential (primary) hypertension; R11.0 Nausea; R06.02 Shortness of breath; Z88.8 Allergy status to other drugs, medicaments and biological substances
CPT/HCPCS: 99283; 96374; 96375; 36415; 82553; 82550; 85025; 80053; 84484; 71046; 93005; 93010; J3490; J2060

== ENCOUNTER 2019-06-04 10:58 | Emergency (ER) | payer OTHER ==
[2019-06-04] MEDS ORDERED: ASPIRIN 325 MG TABLET PO ONE (14:45)
[2019-06-04] MEDS ORDERED: LORAZEPAM 1 MG TABLET PO ONE (14:45)
--- NOTE | 2019-06-04 14:50 | ER Document Report ---
ED General - General Chief Complaint: Anxiety Stated Complaint: POSSIBLE HIGH BLOOD PRESSURE/ANXIETY Time Seen by Provider: 06/04/19 14:12 [facility] Care [facility]: [facility] [[facility]] - Follow up as needed Notes: HPI: 44-year-old male with past medical history of high blood pressure, anxiety, and panic attacks who presents today stating that he feels some "tightness" across bilateral shoulders and around the neck area. He denies any chest discomfort to the substernal anterior chest regions. He states he has had some intermittent nausea with vomiting yesterday. He believes all of this is completely anxiety related. No calf pain, leg swelling, recent trips or travel. Patient was seen here on the and for similar symptoms. Patient recently was on BuSpar with great relief of symptomatology but the patient discontinued taking these medications since he was having some conf licts with discharge. Patient did see a psychiatrist in and was told to take Xanax but he did not follow-up with the psychologist. Patient denies any suicidal homicidal ideations, auditory visual hallucinations, or any new stressors in life. Patient does feel that this is all stress related as he has been having more frequent panic attacks. Patient was seen on the with an unremarkable work-up and started on a short course of Xanax. [facility] but did not because he felt better. On the visit on the patient also had his blood pressure medications doubled. ROS: See HPI All other review of systems reviewed and otherwise negative Reviewed vital signs and nursing note as charted by RN. PHYSICAL EXAM: CONSTITUTIONAL: Alert and oriented and responds appropriately to questions. Well-appearing; well-nourished HEAD: Normocephalic; atraumatic EYES: PERRL; Conjunctivae clear, sclerae non-icteric ENT: Normal nose; no rhinorrhea; moist mucous membranes; pharynx without lesions noted NECK: Supple without meningismus; non-tender; no cervical lymphadenopathy, no masses CARD: Regular rate and rhythm; no murmurs; symmetric distal pulses RESP: Normal chest excursion without splinting or tachypnea; breath sounds clear and equal bilaterally; no wheezes, no rhonchi, no rales ABD/GI: Normal bowel sounds; non-distended; soft, non-tender; no palpable organomegaly or masses BACK: The back appears normal and is non-tender to palpation EXT: Normal ROM in all joints; non-tender to palpation; no edema SKIN: No acute lesions noted NEURO: CN 2-12 intact; 5/5 bilateral upper and lower extremity strength with sensation intact to light touch PSYCH: The patient's mood and manner are appropriate. Grooming and personal hygiene are appropriate. TRAVEL OUTSIDE OF THE [place] IN LAST 30 DAYS: No - Related Data Allergies/Adverse Reactions: lisinopril Allergy (Verified 06/04/19 11:25) Home Medications: ativan -currently out. losartan. metoprolol Past Medical History - Social History Smoking Status: Never Smoker Chew tobacco use (# tins/day): No Frequency of alcohol use: None Drug Abuse: None Family History: CAD, DM, Hypertension, Malignancy Patient has suicidal ideation: No Patient has homicidal ideation: No - Past Medical History Cardiac Medical History: Reports: Hx Hypertension Denies: Hx Coronary Artery Disease, Hx DVT, Hx Heart Attack, Hx Hypercholesterolemia, Hx Pulmonary Embolism Pulmonary Medical History: Denies: Hx Asthma, Hx Bronchitis, Hx COPD, Hx Pneumonia Neurological Medical History: Denies: Hx Cerebrovascular Accident, Hx Migraine, Hx Seizures Endocrine Medical History: Denies: Hx Diabetes Mellitus Type 1, Hx Diabetes Mellitus Type 2, Hx Hyperthyroidism, Hx Hypothyroidism Renal/ Medical History: Denies: Hx Peritoneal Dialysis GI Medical History: Denies: Hx Cirrhosis, Hx Hepatitis Musculoskeletal Medical History: Denies Hx Arthritis, Denies Hx Fibromyalgia, Denies Hx Gout, Reports Hx Musculoskeletal Deformity, Reports Hx Musculoskeletal Trauma Skin Medical History: Denies Hx Eczema, Denies Hx Psoriasis Psychiatric Medical History: Reports: Hx Anxiety, Hx Depression, Hx 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 I do believe ACS, PE, dissection to be unlikely. He does state that his father had a myocardial infa rction but he is unsure when. He does state his dad had a history of high blood pressure. He does believe mom also had coronary disease but he again does not remember when she suffered any insults. 06/04/19 16:16 EKG shows a heart of 75, normal sinus rhythm, left axis deviation, no obvious ST elevation or depression. 06/04/19 16:24 Patient denies any symptoms at this time. Still denies any chest pain. He states that the tenseness to his neck and shoulders has resolved with the Xanax. Patient's blood pressure was improved at 180/80. Heart rate is 74. Patient has an appointment with the [facility] pharmacist tomorrow. I am hesitant to change the patient's blood pressure medications given the recent adjustments. Given that this symptomatology started on Wednesday, 2 days ago I do not believe a repeat troponin is necessary. Heart score is less than or equal to 3. Patient has good follow-up. EKG actually looks improved compared to previous EKGs. X-ray of the chest shows a persistent calcified granuloma with no change. No obvious pneumothorax or cardiomegaly. I will provide a short course of Xanax with strict return precautions and instructions to follow-up with the primary care physician at the [facility] as well as the psychiatrist. Patient and family are very comfortable with this plan. - Vital Signs Vital signs: Temp Pulse Resp BP Pulse Ox 98.8 F 77 20 174/117 H 97 06/04/19 14:14 06/04/19 14:14 06/04/19 14:14 06/04/19 14:14 06/04/19 16:00 - Laboratory Result Diagrams: 06/04/19 15:13 06/04/19 15:13 Laboratory results interpreted by me: 06/04/19 06/04/19 15:13 15:13 Seg Neutrophils % 80.0 H Glucose 119 H Discharge - Discharge Clinical Impression: Anxiety reaction, Atypical chest pain Condition: Good Disposition: HOME, SELF-CARE Additional Instructions: Come back immediately with any return or worsening symptomatology, anterior chest pain, shortness of breath, fevers, leg swelling, or any other acute problems. [facility] as discussed and take your blood pressure medications when you return home. Please also [facility] with possible cardi[facility] follow-up. Take the Xanax as instructed. Take an 81 mg baby aspirin until evaluation. Prescriptions: Alprazolam [Xanax] 1 mg PO Q8 #12 tablet [facility]errals: [facility] [[facility]] - Follow up as needed GIOVANNA MOORE MD [ACTIVE STAFF] - Follow up as needed
[2019-06-04 15:33] LABS: ABSOLUTE LYMPHOCYTES (AUTO) 1.1 10^3/uL (0.5-4.7); ABSOLUTE MONOCYTES (AUTO) 0.5 10^3/uL (0.1-1.4); ABSOLUTE NEUT (AUTO) 6.6 10^3/uL (1.7-8.2); BASOPHILS % (AUTO) 0.4 % (0-2); EOSINOPHILS % (AUTO) 0.2 % (0-6); HEMATOCRIT 49.9 % (37.9-51.0); LYMPHOCYTES % (AUTO) 13.6 % (13-45); MEAN CORPUSCULAR HEMOGLOBIN 31.6 pg (27.0-33.4); MEAN CORPUSCULAR HGB CONC 34.1 g/dL (32.0-36.0); MEAN CORPUSCULAR VOLUME 93 fl (80-97); MONOCYTES % (AUTO) 5.8 % (3-13); PLATELET COUNT 303 10^3/uL (150-450); RED BLOOD COUNT 5.38 10^6/uL (4.35-5.55); RED CELL DISTRIBUTION WIDTH 12.8 % (11.5-14.0); TOTAL CELLS COUNTED % (AUTO) 100 %; WHITE BLOOD COUNT 8.2 10^3/uL (4.0-10.5)
[2019-06-04 15:48] LABS: ANION GAP 11 (5-19); BLOOD UREA NITROGEN 15 mg/dL (7-20); CALCIUM 10.2 mg/dL (8.4-10.2); CARBON DIOXIDE 27 mmol/L (22-30); CHLORIDE 106 mmol/L (98-107); GLUCOSE 119 mg/dL (75-110); POTASSIUM 4.5 mmol/L (3.6-5.0)
--- NOTE | 2019-06-04 16:16 | RADIOLOGY REPORT (SQ) ---
EXAM DESCRIPTION: CHEST SINGLE VIEW COMPLETED DATE/TIME: 06/04/2019 4:05 pm REASON FOR STUDY: 7; cp COMPARISON: Chest radiographs 05/25/2019. EXAM PARAMETERS: NUMBER OF VIEWS: One view. TECHNIQUE: Single frontal radiographic view of the chest acquired. RADIATION DOSE: NA LIMITATIONS: None. FINDINGS: LUNGS AND PLEURA: No opacities, or pneumothorax. Calcified cranial [place], unchanged. No pleural effusion. MEDIASTINUM AND HILAR STRUCTURES: No masses. Contour normal. HEART AND VASCULAR STRUCTURES: Heart normal in size. Normal vasculature. BONES: No acute findings. HARDWARE: None in the chest. OTHER: No other significant finding. IMPRESSION: NO ACUTE RADIOGRAPHIC FINDING IN THE CHEST. TECHNICAL DOCUMENTATION: JOB ID: [id number] [employer]- All Rights Reserved Reading location - IP/workstation name: [email or web address]
[2019-06-04 17:59] VITALS: BP 194/127
--- NOTE | 2019-06-05 02:14 | EKG REPORT ---
SEVERITY:- ABNORMAL ECG - SINUS RHYTHM : Confirmed by: Rudi Santiago 05-Jun-2019 02:14:21
== END 2019-06-04 16:58 | disposition home or self-care (01) ==
LOC: ER 10:58
DX: F41.1 Generalized anxiety disorder (principal); R07.89 Other chest pain; I10 Essential (primary) hypertension
CPT/HCPCS: 36415; 71045; 80048; 84484; 85025; 93005; 93010; 99284